=== PATIENT | female | born 1930 | race Caucasian/White ===

== ENCOUNTER 2017-04-14 15:37 | Inpatient (IN) ==
--- NOTE | 2017-04-14 16:07 | Emergency Department Report ---
Psych HPI - General Chief Complaint: Psychiatric Symptoms Stated Complaint: [facility] Clearance Time Seen by Provider: 04/14/17 15:50 Source: patient Mode of arrival: wheelchair Limitations: altered mental status - History of Present Illness HPI Narrative: [place] with [place]. [place] staff reports pt has had increasing paranoia over the last 2 weeks. Pt has accused staff of stealing her belongs. She thinks people are coming to get her through her TV set. [place] has tried to obtain a urine sample without success. NH staff reports pt is normally mentally cognizant. PCP and NH staff have attempted to make medication changes however pt is very aware of what medications she takes and has refused taking anything different. complaint: other (paranoia) Onset (ago): week(s) Duration: constant Relieving factors: none Exacerbating factors: none Associated psychiatric symptoms: other (paranoia) Associated symptoms: denies other symptoms Treatments prior to arrival: none - Related Data Home Medications Medication Instructions Recorded Confirmed Acetaminophen [Acetaminophen Extra 1,000 mg PO Q4H PRN 01/20/17 04/14/17 Strength] Ascorbic Acid [Vitamin C] 500 mg PO DAILY 01/20/17 04/14/17 Aspirin 81 mg PO DAILY 01/20/17 04/14/17 Cholecalciferol (Vitamin D3) 1,000 mg PO DAILY 01/20/17 04/14/17 [Vitamin D3] Docusate Sodium [Colace] 100 mg PO DAILY PRN 04/14/17 04/14/17 Mag Hydrox/Aluminum Hyd/Simeth 5 ml PO BID PRN 04/14/17 04/14/17 [Alum-Mag Hydroxide-Simeth Liq] Previous Rx's Medication Instructions Recorded levothyroxine 75 mcg tablet 75 mcg PO QAM #30 tab 11/11/16 Lasix (Furosemide) 20 mg tablet 20 mg PO BID #60 tab 04/01/17 Allergies Allergy/AdvReac Type Severity Reaction Status Date / Time heparin Allergy Unknown Verified 04/14/17 15:56 influenza virus vaccine, Allergy Unknown Verified 04/14/17 15:56 specific iodine Allergy Unknown Verified 04/14/17 15:56 Penicillins Allergy Unknown Verified 04/14/17 15:56 pentazocine [From Talwin] Allergy Unknown Verified 04/14/17 15:56 strawberry Allergy Unknown Verified 04/14/17 15:56 Sulfa (Sulfonamide Allergy Unknown Verified 04/14/17 15:56 Antibiotics) zolpidem [From Ambien] Allergy Unknown Verified 04/14/17 15:56 orange peel tincture Allergy Unknown Uncoded 01/20/17 09:24 Shellfish Allergy Unknown Uncoded 11/01/10 08:02 Review of Systems All systems: reviewed and negative except as stated Constitutional: Reports: as per HPI Neurological: Reports: as per HPI Psychiatric: Reports: as per HPI PFSH Patient Stated Medical History Glaucoma Yes Hypertension Yes Chronic Obstructive Pulmonary Yes Disease (COPD) Osteoarthritis Yes Schizophrenia Yes Surgical History: Orthopedic surgery, CABG - Social History Smoking status: Never smoker Physical Exam - Limitations Limitations: no limitations - General General appearance: alert, in no apparent distress - Normal Exams: Head:: Normocephalic without trauma Eyes:: Pupils are PERRLA w/ EOMI Neck:: Full range of motion, without adenopathy Chest/Respirations:: Clear all baptiste, with good airflow, and symmetry bilaterally Cardiovascular:: Regular rate and rhythm, without murmur or gallop, Pulses 2+ all extremities Abdomen:: Bowel sounds positive, soft, non-tender, non-distended Musculoskeletal:: No tenderness, or deformity noted, good range of motion, all extremities Integumentary:: No rashes Neurological:: Patient is alert, cranial nerves, motor/sensory/cerebellar, exams w/o gross deficits, to observation Psychiatric:: Patient exhibits, appropriate attention, emotion and affect Course Vital Signs Temperature 97.8 F 04/14/17 15:40 Pulse Rate 67 04/14/17 15:40 Respiratory Rate 18 04/14/17 15:40 Blood Pressure 133/65 04/14/17 15:40 Pulse Oximetry 93 04/14/17 15:40 Temperature 97.8 F 04/14/17 15:40 Pulse Rate 67 04/14/17 15:40 Respiratory Rate 18 04/14/17 15:40 Blood Pressure 133/65 04/14/17 15:40 Pulse Oximetry 93 04/14/17 15:40 Psych - MDM Narrative Medical decision making narrative: Labs reviewed with no acute findings. [facility] notified of pt medical clearance. Pt to transfer after report given. - Differential Diagnosis Likely: acute psychosis, depression, acute anxiety - Lab Data Attestation: I reviewed the patient's lab results. Result diagrams: 04/14/17 16:15 04/14/17 16:15 Lab Results 04/14/17 04/14/17 04/14/17 Range/Units 16:15 16:15 16:44 WBC 8.5 (4.5-11.0) T/MM3 RBC 4.23 (4.00-5.20) M/MM3 Hgb 13.9 (12-16) GM/DL Hct 43.0 (36-46) % MCV 101.7 H (80-100) UM3 MCH 32.9 (26-34) UUG MCHC 32.3 (31-37) GM/DL RDW Std Deviation 44.8 (36.9-50.2) FL Plt Count 212 (130-400) T/MM3 MPV 11.1 (9.4-12.4) UM3 Immature Gran % (Auto) 0.1 (0.0-0.5) % Neut % (Auto) 69.6 H (33-66) % Lymph % (Auto) 17.0 L (23-45) % Wilbarger % (Auto) 10.9 H (0-9.0) % Eos % (Auto) 1.9 (0-4) % Baso % (Auto) 0.5 (0-2) % Neut # (Auto) 5.9 (1.8-7.7) T/MM3 Lymph # (Auto) 1.5 (1-4.8) T/MM3 Wilbarger # (Auto) 0.9 H (0-0.8) T/MM3 Eos # (Auto) 0.2 (0-0.5) T/MM3 Baso # (Auto) 0.0 (0-0.2) T/MM3 Abs Immat Gran (auto) 0.01 (0.00-0.03) T/MM3 Turbidity < 20 (0-20) Sodium 144 (134-144) MEQ/L Potassium 3.5 L (3.6-5) MEQ/L Chloride 102 (98-107) MEQ/L Carbon Dioxide 32 H (22-30) MEQ/L Anion Gap 10 (5-15) MEQ/L BUN 14.0 (7-17) MG/DL Creatinine 0.9 (0.7-1.2) MG/DL GFR Calculation 59 BUN/Creatinine Ratio 16 (6-26) RATIO Glucose 96 (65-110) MG/DL Calculated Osmolality 278 (261-280) MOSM/KG Calcium 8.8 (8.4-10.2) MG/DL Total Bilirubin 0.80 (0.20-1.30) MG/DL Icterus Index < 2 (0-7) AST 20 (14-36) U/L ALT 22 (9-52) U/L Alkaline Phosphatase 108 (38-126) U/L Total Protein 7.6 (6.3-8.2) G/DL Albumin 4.0 (3.5-5.0) G/DL Globulin 3.6 (2.4-3.6) G/DL Albumin/Globulin Ratio 1.1 (1.1-2.2) RATIO Specimen Hemolysis < 15 (0-25) Ur Collection Type Urine, catheter Urine Color Yellow (YELLOW) Urine Clarity Clear Urine pH 6.5 (5.0-8.0) Ur Specific Wh[place] <=1.005 L (1.015-1.025) Urine Protein Negative (NEGATIVE) Urine Glucose (UA) Negative (NEGATIVE) Urine Ketones Negative (NEGATIVE) Urine Occult Blood Negative (NEGATIVE) Urine Nitrate Negative (NEGATIVE) Urine Bilirubin Negative (NEGATIVE) Urine Urobilinogen 0.2 (NORMAL) EU/DL Ur Leukocyte Esterase Negative (NEGATIVE) Urinalysis Comment Microscopic not ind. Disposition Clinical Impression: Acute psychosis Disposition: 66 To [facility] Condition: Stable Prescriptions: No Action Ascorbic Acid [Vitamin C] 500 mg PO DAILY Docusate Sodium [Colace] 100 mg PO DAILY PRN PRN Reason: Constipation Aspirin 81 mg PO DAILY Cholecalciferol (Vitamin D3) [Vitamin D3] 1,000 mg PO DAILY Acetaminophen [Acetaminophen Extra Strength] 1,000 mg PO Q4H PRN PRN Reason: Pain Mag Hydrox/Aluminum Hyd/Simeth [Alum-Mag Hydroxide-Simeth Liq] 5 ml PO BID PRN PRN Reason: Indigestion Lasix (Furosemide) 20 mg tablet 20 mg PO BID #60 tab levothyroxine 75 mcg tablet 75 mcg PO QAM #30 tab Referrals: Mt Zarate MD [Family Provider] - Time of Disposition: 16:53 - Seen By: midlevel
[2017-04-14] MEDS ORDERED: HALOPERIDOL 0.5 MG TABLET PO PRN (17:44)
[2017-04-14] MEDS ORDERED: MAG-AL + SIM ORAL LIQUID 30ml PO PRN (17:44)
[2017-04-14] MEDS ORDERED: DOCUSATE SODIUM 100 MG CAPSULE PO PRN (17:44)
[2017-04-14] MEDS ORDERED: HALOPERIDOL 5 MG/ML INJECTION IM PRN (17:44)
[2017-04-14] MEDS ORDERED: LORazepam 0.5 MG TABLET PO PRN (17:44)
[2017-04-14 17:50] VITALS: BMI 36.4
[2017-04-15] MEDS: FUROSEMIDE 20 MG TABLET PO SCH ×2 (09:00→14:31)
[2017-04-15] MEDS: LEVOTHYROXINE 75 MCG TABLET PO SCH (09:00)
[2017-04-15] MEDS: ASPIRIN 81 MG CHEWABLE TABLET PO SCH (09:12)
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
[2017-04-16] MEDS: LEVOTHYROXINE 75 MCG TABLET PO SCH (08:47)
[2017-04-16] MEDS: FUROSEMIDE 20 MG TABLET PO SCH ×2 (08:47→13:46)
[2017-04-16] MEDS: ASPIRIN 81 MG CHEWABLE TABLET PO SCH (08:47)
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
[2017-04-17] MEDS: ASPIRIN 81 MG CHEWABLE TABLET PO SCH (08:36)
[2017-04-17] MEDS: FUROSEMIDE 20 MG TABLET PO SCH ×2 (08:36→14:08)
[2017-04-17] MEDS: LEVOTHYROXINE 75 MCG TABLET PO SCH (08:36)
[2017-04-17] MEDS: CYANOCOBALAMIN (B-12) 1,000mcg/ml INJECTION IM SCH (10:25)
--- NOTE | 2017-04-17 12:56 | Neuropsych Progress Note ---
[facility] Subjective Date: 04/17/17 - Sujective/Severity of Illness Medications: Acetaminophen (Tylenol) 1,000 mg PO Q6H PRN PRN Reason: Pain Al Hydroxide/Mg Hydroxide (Maalox Plus) 5 ml PO BID PRN PRN Reason: Indigestion Aspirin (Asa) 81 mg PO DAILY [facility] Last Admin: 04/17/17 08:36 Dose: 81 mg Cyanocobalamin (Vit. B-12) 1,000 mcg IM DAILY [facility] Stop: 04/19/17 09:01 Last Admin: 04/17/17 10:25 Dose: 1,000 mcg Docusate Sodium (Colace) 100 mg PO DAILY PRN PRN Reason: Constipation Furosemide (Lasix) 20 mg PO 0800,1400 [facility] Last Admin: 04/17/17 08:36 Dose: 20 mg Haloperidol (Haldol) 0.5 mg PO Q6H PRN PRN Reason: Extreme agitation Haloperidol Lactate (Haldol) 0.5 mg IM Q6H PRN PRN Reason: Extreme agitation Levothyroxine Sodium (Synthroid) 75 mcg PO ACB [facility] Last Admin: 04/17/17 08:36 Dose: 75 mcg Lorazepam (Ativan) 0.5 mg PO Q6H PRN PRN Reason: Extreme agitation Lorazepam (Ativan Inj) 0.5 mg IM Q6H PRN PRN Reason: Extreme agitation Subjective: Patient seen and chart reviewed. Case discussed with nursing. Nursing reports pt is doing well. Sleeping well and has a good appetite. On face to face the pt states she is doing well. She remains paranoid [facility] but does not feel it is happening here. She reports her mood is stable and she denies any S/I. Tolerating meds Start Time: 12:45 Stop Time: 13:00 Mental Status Exam Vitals: Last Vital Signs Temp 96.5 F L 04/17/17 08:00 Pulse 70 04/17/17 08:00 Resp 20 04/17/17 08:00 BP 132/66 04/17/17 08:00 Pulse Ox 96 04/17/17 08:00 Height: 1.63 m Weight: 96.3 kg - Mental Status Exam Muscle Strength/Tone: Normal Dressing: Casual Grooming: Fair Attitude: Cooperative Motor Activity: Fidgety Eye Contact: Good Speech: Rapid Volume: Loud Rhythm: Appropriate Rhythm Orientation: Disoriented to time, Disoriented to situation, Oriented to person, Oriented to place Mood: Neutral Rate of Thoughts: Pressured Thought Organization: Disorganized Associations: Loose-associations Abstract Reasoning: Poor abstract reasoning Thought Content: Paranoia, Grandeur (mild) Perception/Psychotic: Perception Normal Language: Naming Intact Fund of Knowledge: Other (decreased) Memory: Poor-recent Suicidal Ideation: Denies Homicidal Ideation: Denies Insight: Impaired Judgement: Impaired Impulse Control: Poor - Laboratory Result Diagrams: 04/14/17 16:15 04/17/17 07:33 Laboratory Results - last 24 hr 04/17/17 07:33 Turbidity < 20 Sodium 145 H Potassium 4.2 D Chloride 107 Carbon Dioxide 31 H Anion Gap 7 BUN 12.0 Creatinine 0.8 GFR Calculation 68 BUN/Creatinine Ratio 15 Glucose 97 Calculated Osmolality 279 Calcium 8.5 Icterus Index < 2 Specimen Hemolysis < 15 Assessment and Plan (1) Acute psychosis Problem details: R/O Bipolar 1 disorder, manic, with psychotic features Current visit: Yes Status: Acute (2) Major neurocognitive disorder Current visit: Yes Status: Acute (3) COPD (chronic obstructive pulmonary disease) Current visit: Yes Status: Acute (4) Hypertension Current visit: Yes Status: Acute (5) Glaucoma Current visit: Yes Status: Acute (6) Hypothyroidism Current visit: Yes Status: Acute (7) Osteoarthritis Current visit: Yes Status: Acute (8) Vitamin B12 deficiency Current visit: Yes Status: Acute Hospital Course Summary Disclaimer: The visit summary below is not to be considered part of the above Progress Note. Hospital Course: 04/15/17 Impression Hypokalemia- POA Psychosis Schizophrenia COPD Hypertension Glaucoma Hypothyroidism Osteoarthritis Plan Agree with admission to [facility] unit under the care of Dr. Katz for further psychiatric evaluation and treatment. All medical screening reviewed. Will recommend treating the mild hypokalemia with a one-time dose of potassium 40meq. It appears she is on Lasix BID without scheduled potassium supplementation. Will then schedule 10 meq daily. Monitor blood pressure, It does not appear the patient is on any antihypertensives currently. Encourage patient to participate in unit activities and provide a safe environment. Hospital services will continue to follow patient covering for PCP, Dr. Zarate 04/15/17 Psych: Admit - continued home medications. 04/16/17 Psych: Attempting to obtain records from [place] to assess whether patient has previously been diagnosed as bipolar - if so, would like to start Depakote once obtaining consent from [facility]. Have ordered Vitamin B12 1000mg IM x 3 days due to low B12 upon admission. 04/17/17 12:55 Some paranoia but no behaviors. Continue current care
[2017-04-18] MEDS: LEVOTHYROXINE 75 MCG TABLET PO SCH (06:46)
[2017-04-18] MEDS: FUROSEMIDE 20 MG TABLET PO SCH ×2 (08:31→17:08)
[2017-04-18] MEDS: ASPIRIN 81 MG CHEWABLE TABLET PO SCH (08:31)
[2017-04-18] MEDS: CYANOCOBALAMIN (B-12) 1,000mcg/ml INJECTION IM SCH (08:32)
--- NOTE | 2017-04-18 12:45 | Neuropsych Progress Note ---
[facility] Subjective Date: 04/18/17 - Sujective/Severity of Illness Medications: Acetaminophen (Tylenol) 1,000 mg PO Q6H PRN PRN Reason: Pain Al Hydroxide/Mg Hydroxide (Maalox Plus) 5 ml PO BID PRN PRN Reason: Indigestion Aspirin (Asa) 81 mg PO DAILY [facility] Last Admin: 04/18/17 08:31 Dose: 81 mg Cyanocobalamin (Vit. B-12) 1,000 mcg IM DAILY [facility] Stop: 04/19/17 09:01 Last Admin: 04/18/17 08:32 Dose: 1,000 mcg Docusate Sodium (Colace) 100 mg PO DAILY PRN PRN Reason: Constipation Furosemide (Lasix) 20 mg PO 0800,1400 [facility] Last Admin: 04/18/17 08:31 Dose: 20 mg Haloperidol (Haldol) 0.5 mg PO Q6H PRN PRN Reason: Extreme agitation Haloperidol Lactate (Haldol) 0.5 mg IM Q6H PRN PRN Reason: Extreme agitation Levothyroxine Sodium (Synthroid) 75 mcg PO ACB [facility] Last Admin: 04/18/17 06:46 Dose: 75 mcg Lorazepam (Ativan) 0.5 mg PO Q6H PRN PRN Reason: Extreme agitation Lorazepam (Ativan Inj) 0.5 mg IM Q6H PRN PRN Reason: Extreme agitation Subjective: Patient seen and chart reviewed. Case discussed with nursing. Nursing reports pt is sleeping well and has a good appetite. Remains paranoid about people stealing her clothes but is redirectable. On face to face the pt is pleasant. She reports people stealing her clothes at the [place] but this does not appear to be real concerning to her. She reports her mood is stable. Tolerating meds Start Time: 12:30 Stop Time: 12:45 Mental Status Exam Vitals: Last Vital Signs Temp 97.5 F 04/18/17 08:00 Pulse 72 04/18/17 08:00 Resp 18 04/18/17 08:00 BP 137/72 04/18/17 08:00 Pulse Ox 96 04/18/17 08:00 Height: 1.63 m Weight: 96.3 kg - Mental Status Exam Muscle Strength/Tone: Normal Dressing: Casual Grooming: Fair Attitude: Cooperative Motor Activity: Fidgety Eye Contact: Good Speech: Rapid Volume: Loud Rhythm: Appropriate Rhythm Orientation: Disoriented to time, Disoriented to situation, Oriented to person, Oriented to place Mood: Neutral Rate of Thoughts: Pressured Thought Organization: Disorganized Associations: Loose-associations Abstract Reasoning: Poor abstract reasoning Thought Content: Paranoia, Grandeur (mild) Perception/Psychotic: Perception Normal Language: Naming Intact Fund of Knowledge: Other (decreased) Memory: Poor-recent Suicidal Ideation: Denies Homicidal Ideation: Denies Insight: Impaired Judgement: Impaired Impulse Control: Poor - Laboratory Result Diagrams: 04/14/17 16:15 04/17/17 07:33 Assessment and Plan (1) Acute psychosis Problem details: R/O Bipolar 1 disorder, manic, with psychotic features Current visit: Yes Status: Acute (2) Major neurocognitive disorder Current visit: Yes Status: Acute (3) COPD (chronic obstructive pulmonary disease) Current visit: Yes Status: Acute (4) Hypertension Current visit: Yes Status: Acute (5) Glaucoma Current visit: Yes Status: Acute (6) Hypothyroidism Current visit: Yes Status: Acute (7) Osteoarthritis Current visit: Yes Status: Acute (8) Vitamin B12 deficiency Current visit: Yes Status: Acute Hospital Course Summary Disclaimer: The visit summary below is not to be considered part of the above Progress Note. Hospital Course: 04/15/17 Impression Hypokalemia- POA Psychosis Schizophrenia COPD Hypertension Glaucoma Hypothyroidism Osteoarthritis Plan Agree with admission to [facility] under the care of Dr. Katz for further psychiatric evaluation and treatment. All medical screening reviewed. Will recommend treating the mild hypokalemia with a one-time dose of potassium 40meq. It appears she is on Lasix BID without scheduled potassium supplementation. Will then schedule 10 meq daily. Monitor blood pressure, It does not appear the patient is on any antihypertensives currently. Encourage patient to participate in unit activities and provide a safe environment. Hospital services will continue to follow patient covering for PCP, Dr. Zarate 04/15/17 Psych: Admit - continued home medications. 04/16/17 Psych: Attempting to obtain records from [place] to assess whether patient has previously been diagnosed as bipolar - if so, would like to start Depakote once obtaining consent from [facility]. Have ordered Vitamin B12 1000mg IM x 3 days due to low B12 upon admission. 04/17/17 12:55 Some paranoia but no behaviors. Continue current care 04/18/17 12:42 Some paranoia. Continue current care
[2017-04-19] MEDS: LEVOTHYROXINE 75 MCG TABLET PO SCH (08:36)
[2017-04-19] MEDS: FUROSEMIDE 20 MG TABLET PO SCH ×2 (08:36→15:27)
[2017-04-19] MEDS: ASPIRIN 81 MG CHEWABLE TABLET PO SCH (08:37)
[2017-04-19] MEDS: CYANOCOBALAMIN (B-12) 1,000mcg/ml INJECTION IM SCH (08:37)
--- NOTE | 2017-04-19 11:09 | Neuropsych Progress Note ---
[facility] Subjective Date: 04/19/17 - Sujective/Severity of Illness Medications: Acetaminophen (Tylenol) 1,000 mg PO Q6H PRN PRN Reason: Pain Al Hydroxide/Mg Hydroxide (Maalox Plus) 5 ml PO BID PRN PRN Reason: Indigestion Aspirin (Asa) 81 mg PO DAILY [facility] Last Admin: 04/19/17 08:37 Dose: 81 mg Docusate Sodium (Colace) 100 mg PO DAILY PRN PRN Reason: Constipation Furosemide (Lasix) 20 mg PO 0800,1400 [facility] Last Admin: 04/19/17 08:36 Dose: 20 mg Haloperidol (Haldol) 0.5 mg PO Q6H PRN PRN Reason: Extreme agitation Haloperidol Lactate (Haldol) 0.5 mg IM Q6H PRN PRN Reason: Extreme agitation Levothyroxine Sodium (Synthroid) 75 mcg PO ACB [facility] Last Admin: 04/19/17 08:36 Dose: 75 mcg Lorazepam (Ativan) 0.5 mg PO Q6H PRN PRN Reason: Extreme agitation Lorazepam (Ativan Inj) 0.5 mg IM Q6H PRN PRN Reason: Extreme agitation Subjective: Patient seen and chart reviewed. Case discussed with nursing. Nursing reports pt is sleeping well and has a good appetite. On face to face the pt continues to say she is here because people were stealing her clothes but again this does not seem to be to concerning to her at this time. She reports her mood is stable and she denies any S/I or A/V garcia. Voices no concerns at this time Start Time: 10:30 Stop Time: 10:45 Mental Status Exam Vitals: Last Vital Signs Temp 97.0 F 04/19/17 08:00 Pulse 72 04/19/17 08:00 Resp 20 04/19/17 08:00 BP 126/68 04/19/17 08:00 Pulse Ox 98 04/19/17 08:00 Height: 1.63 m Weight: 96.3 kg - Mental Status Exam Muscle Strength/Tone: Normal Dressing: Casual Grooming: Fair Attitude: Cooperative Motor Activity: Normal Eye Contact: Good Speech: Normal Volume: Normal Rhythm: Appropriate Rhythm Orientation: Disoriented to time, Disoriented to situation, Oriented to person, Oriented to place Mood: Euthymic Rate of Thoughts: Pressured Thought Organization: Organized Associations: Intact Abstract Reasoning: Poor abstract reasoning Thought Content: Paranoia Perception/Psychotic: Perception Normal Language: Naming Intact Fund of Knowledge: Poor fund of knowledge Memory: Poor-recent Suicidal Ideation: Denies Homicidal Ideation: Denies Insight: Impaired Judgement: Impaired Impulse Control: Fair - Laboratory Result Diagrams: 04/14/17 16:15 04/17/17 07:33 Assessment and Plan (1) Acute psychosis Problem details: R/O Bipolar 1 disorder, manic, with psychotic features Current visit: Yes Status: Acute (2) Major neurocognitive disorder Current visit: Yes Status: Acute (3) COPD (chronic obstructive pulmonary disease) Current visit: Yes Status: Acute (4) Hypertension Current visit: Yes Status: Acute (5) Glaucoma Current visit: Yes Status: Acute (6) Hypothyroidism Current visit: Yes Status: Acute (7) Osteoarthritis Current visit: Yes Status: Acute (8) Vitamin B12 deficiency Current visit: Yes Status: Acute Hospital Course Summary Disclaimer: The visit summary below is not to be considered part of the above Progress Note. Hospital Course: 04/15/17 Impression Hypokalemia- POA Psychosis Schizophrenia COPD Hypertension Glaucoma Hypothyroidism Osteoarthritis Plan Agree with admission to [facility] under the care of Dr. Katz for further psychiatric evaluation and treatment. All medical screening reviewed. Will recommend treating the mild hypokalemia with a one-time dose of potassium 40meq. It appears she is on Lasix BID without scheduled potassium supplementation. Will then schedule 10 meq daily. Monitor blood pressure, It does not appear the patient is on any antihypertensives currently. Encourage patient to participate in unit activities and provide a safe environment. Hospital services will continue to follow patient covering for PCP, Dr. Zarate 04/15/17 Psych: Admit - continued home medications. 04/16/17 Psych: Attempting to obtain records from [place] to assess whether patient has previously been diagnosed as bipolar - if so, would like to start Depakote once obtaining consent from [facility]. Have ordered Vitamin B12 1000mg IM x 3 days due to low B12 upon admission. 04/17/17 12:55 Some paranoia but no behaviors. Continue current care 04/18/17 12:42 Some paranoia. Continue current care 04/19/17 11:03 Some paranoia but mild. [facility] records have a past diagnosis of Unspecified Schizophrenia and a neurocognitive Disorder. (Possibly Delusional Disorder). PT reportedly did well on Haldol in the past but it was stopped.
[2017-04-20] MEDS: LEVOTHYROXINE 75 MCG TABLET PO SCH (06:05)
[2017-04-20] MEDS: FUROSEMIDE 20 MG TABLET PO SCH ×2 (08:37→13:54)
[2017-04-20] MEDS: ASPIRIN 81 MG CHEWABLE TABLET PO SCH (08:37)
--- NOTE | 2017-04-20 13:03 | Neuropsych Progress Note ---
[facility] Subjective Date: 04/21/17 - Sujective/Severity of Illness Medications: Acetaminophen (Tylenol) 1,000 mg PO Q6H PRN PRN Reason: Pain Al Hydroxide/Mg Hydroxide (Maalox Plus) 5 ml PO BID PRN PRN Reason: Indigestion Aspirin (Asa) 81 mg PO DAILY [facility] Last Admin: 04/20/17 08:37 Dose: 81 mg Docusate Sodium (Colace) 100 mg PO DAILY PRN PRN Reason: Constipation Furosemide (Lasix) 20 mg PO 0800,1400 [facility] Last Admin: 04/20/17 08:37 Dose: 20 mg Haloperidol (Haldol) 0.5 mg PO Q6H PRN PRN Reason: Extreme agitation Haloperidol Lactate (Haldol) 0.5 mg IM Q6H PRN PRN Reason: Extreme agitation Levothyroxine Sodium (Synthroid) 75 mcg PO ACB [facility] Last Admin: 04/20/17 06:05 Dose: 75 mcg Lorazepam (Ativan) 0.5 mg PO Q6H PRN PRN Reason: Extreme agitation Lorazepam (Ativan Inj) 0.5 mg IM Q6H PRN PRN Reason: Extreme agitation Subjective: Patient seen and chart reviewed. Case discussed with treatment team. On interview, patient is pleasant but quite perseverative in regards to paranoid delusions of staff at facility stealing from her and needing to meet with a control officer, the chief administrative officer, etc. She minimizes report of behaviors at facility that were causing problems with other residents. Patient denies any SI, HI or AVH. Discussed medication options with her and patient is adamant she does not want an antipsychotic. Nursing staff report patient has not had significant behavioral difficulties on the unit. Adherence with medications has been variable. Patient slept 7.75 hours overnight. VSS. Patient is eating well. Psychotropic PRNs required in the past 24 hours: none. Discussed care with patient's guardian, who reports that behavior at facility has repeatedly been problematic, and she would like patient to be given antipsychotic in drink. Discussed with facility, who states they are able to do this. Start Time: 09:20 Stop Time: 09:40 Mental Status Exam Vitals: Last Vital Signs Temp 97.0 F 04/20/17 08:00 Pulse 79 04/20/17 08:00 Resp 18 04/20/17 08:00 BP 130/74 04/20/17 08:00 Pulse Ox 96 04/20/17 08:00 Height: 1.63 m Weight: 96.3 kg - Mental Status Exam Muscle Strength/Tone: Normal Dressing: Casual Grooming: Fair Attitude: Cooperative Motor Activity: Normal Eye Contact: Good Speech: Normal Volume: Normal Rhythm: Appropriate Rhythm Orientation: Disoriented to time, Disoriented to situation, Oriented to person, Oriented to place Mood: Euthymic Affect: Relaxed Rate of Thoughts: Pressured (milkd) Thought Organization: Perseverations (on delusions) Associations: Intact Abstract Reasoning: Poor abstract reasoning Thought Content: Delusions, Paranoia Perception/Psychotic: Perception Normal Language: Naming Intact Fund of Knowledge: Poor fund of knowledge Memory: Poor-recent Suicidal Ideation: Denies Homicidal Ideation: Denies Insight: Impaired Judgement: Impaired Impulse Control: Fair - Laboratory Result Diagrams: 04/14/17 16:15 04/17/17 07:33 Assessment and Plan (1) Acute psychosis Problem details: R/O Schizohprenia R/O Delusional disorder Current visit: Yes Status: Acute (2) Major neurocognitive disorder Current visit: Yes Status: Acute (3) COPD (chronic obstructive pulmonary disease) Current visit: Yes Status: Acute (4) Hypertension Current visit: Yes Status: Acute (5) Glaucoma Current visit: Yes Status: Acute (6) Hypothyroidism Current visit: Yes Status: Acute (7) Osteoarthritis Current visit: Yes Status: Acute (8) Vitamin B12 deficiency Current visit: Yes Status: Acute Will start Zyprexa 2.5mg PO in drink at dinner; informed consent given by guardian to give medication without patient's knowledge. Hospital Course Summary Disclaimer: The visit summary below is not to be considered part of the above Progress Note. Hospital Course: 04/15/17 Impression Hypokalemia- POA Psychosis Schizophrenia COPD Hypertension Glaucoma Hypothyroidism Osteoarthritis Plan Agree with admission to [facility] unit under the care of Dr. Katz for further psychiatric evaluation and treatment. All medical screening reviewed. Will recommend treating the mild hypokalemia with a one-time dose of potassium 40meq. It appears she is on Lasix BID without scheduled potassium supplementation. Will then schedule 10 meq daily. Monitor blood pressure, It does not appear the patient is on any antihypertensives currently. Encourage patient to participate in unit activities and provide a safe environment. Hospital services will continue to follow patient covering for PCP, Dr. Zarate 04/15/17 Psych: Admit - continued home medications. 04/16/17 Psych: Attempting to obtain records from [place] to assess whether patient has previously been diagnosed as bipolar - if so, would like to start Depakote once obtaining consent from [facility]. Have ordered Vitamin B12 1000mg IM x 3 days due to low B12 upon admission. 04/17/17 12:55 Some paranoia but no behaviors. Continue current care 04/18/17 12:42 Some paranoia. Continue current care 04/19/17 11:03 Some paranoia but mild. [facility] records have a past diagnosis of Unspecified Schizophrenia and a neurocognitive Disorder. (Possibly Delusional Disorder). PT reportedly did well on Haldol in the past but it was stopped. 04/21/17 Psych: Will start Zyprexa 2.5mg PO in drink at dinner; informed consent given by guardian to give medication without patient's knowledge.
[2017-04-20] MEDS: OLANZapine ODT 5 MG TABLET PO SCH (17:15)
[2017-04-21] MEDS: LEVOTHYROXINE 75 MCG TABLET PO SCH (08:16)
[2017-04-21] MEDS: FUROSEMIDE 20 MG TABLET PO SCH ×2 (08:16→14:00)
[2017-04-21] MEDS: ASPIRIN 81 MG CHEWABLE TABLET PO SCH (08:17)
--- NOTE | 2017-04-21 11:59 | Neuropsych Progress Note ---
[facility] Subjective Date: 04/21/17 - Sujective/Severity of Illness Medications: Acetaminophen (Tylenol) 1,000 mg PO Q6H PRN PRN Reason: Pain Al Hydroxide/Mg Hydroxide (Maalox Plus) 5 ml PO BID PRN PRN Reason: Indigestion Aspirin (Asa) 81 mg PO DAILY [facility] Last Admin: 04/21/17 08:17 Dose: 81 mg Docusate Sodium (Colace) 100 mg PO DAILY PRN PRN Reason: Constipation Furosemide (Lasix) 20 mg PO 0800,1400 [facility] Last Admin: 04/21/17 08:16 Dose: 20 mg Haloperidol (Haldol) 0.5 mg PO Q6H PRN PRN Reason: Extreme agitation Haloperidol Lactate (Haldol) 0.5 mg IM Q6H PRN PRN Reason: Extreme agitation Levothyroxine Sodium (Synthroid) 75 mcg PO ACB [facility] Last Admin: 04/21/17 08:16 Dose: 75 mcg Lorazepam (Ativan) 0.5 mg PO Q6H PRN PRN Reason: Extreme agitation Lorazepam (Ativan Inj) 0.5 mg IM Q6H PRN PRN Reason: Extreme agitation Olanzapine (Zyprexa Zydis) 2.5 mg PO 17 [facility] Last Admin: 04/20/17 17:15 Dose: 2.5 mg Subjective: Patient seen and chart reviewed. Case discussed with treatment team. On interview, patient continues to have paranoid delusions but is less perseverative today. Patient denies any SI, HI or AVH. Nursing staff report patient has not had significant behavioral difficulties on the unit. Adherence with medications has been variable. Patient slept 9.5 hours overnight. VSS. Patient is eating well. Psychotropic PRNs required in the past 24 hours: none. Start Time: 09:20 Stop Time: 09:40 Mental Status Exam Vitals: Last Vital Signs Temp 96.8 F 04/21/17 08:00 Pulse 72 04/21/17 08:00 Resp 16 04/21/17 08:00 BP 138/73 04/21/17 08:00 Pulse Ox 93 04/21/17 08:00 Height: 1.63 m Weight: 96.3 kg - Mental Status Exam Muscle Strength/Tone: Normal Dressing: Casual Grooming: Fair Attitude: Cooperative Motor Activity: Normal Eye Contact: Good Speech: Normal Volume: Normal Rhythm: Appropriate Rhythm Orientation: Disoriented to time, Disoriented to situation, Oriented to person, Oriented to place Mood: Euthymic Rate of Thoughts: Pressured (milkd) Thought Organization: Perseverations (on delusions) Associations: Intact Abstract Reasoning: Poor abstract reasoning Thought Content: Delusions, Paranoia Perception/Psychotic: Perception Normal Language: Naming Intact Fund of Knowledge: Poor fund of knowledge Memory: Poor-recent Suicidal Ideation: Denies Homicidal Ideation: Denies Insight: Impaired Judgement: Impaired Impulse Control: Fair - Laboratory Result Diagrams: 04/14/17 16:15 04/17/17 07:33 Assessment and Plan (1) Acute psychosis Problem details: R/O Schizohprenia R/O Delusional disorder Current visit: Yes Status: Acute (2) Major neurocognitive disorder Current visit: Yes Status: Acute (3) COPD (chronic obstructive pulmonary disease) Current visit: Yes Status: Acute (4) Hypertension Current visit: Yes Status: Acute (5) Glaucoma Current visit: Yes Status: Acute (6) Hypothyroidism Current visit: Yes Status: Acute (7) Osteoarthritis Current visit: Yes Status: Acute (8) Vitamin B12 deficiency Current visit: Yes Status: Acute Zyprexa started last night - if well-tolerated, can increase to 5mg PO daily on 04/22. Will also continue weekly IM Vitamin B12 x 1 month then monthly injections thereafter. Would prefer to use different antipsychotic as patient is already obese but limited as it must be dissolved in patient's drink. Hospital Course Summary Disclaimer: The visit summary below is not to be considered part of the above Progress Note. Hospital Course: 04/15/17 Impression Hypokalemia- POA Psychosis Schizophrenia COPD Hypertension Glaucoma Hypothyroidism Osteoarthritis Plan Agree with admission to [facility] under the care of Dr. Katz for further psychiatric evaluation and treatment. All medical screening reviewed. Will recommend treating the mild hypokalemia with a one-time dose of potassium 40meq. It appears she is on Lasix BID without scheduled potassium supplementation. Will then schedule 10 meq daily. Monitor blood pressure, It does not appear the patient is on any antihypertensives currently. Encourage patient to participate in unit activities and provide a safe environment. Hospital services will continue to follow patient covering for PCP, Dr. Zarate 04/15/17 Psych: Admit - continued home medications. 04/16/17 Psych: Attempting to obtain records from [place] to assess whether patient has previously been diagnosed as bipolar - if so, would like to start Depakote once obtaining consent from [facility]. Have ordered Vitamin B12 1000mg IM x 3 days due to low B12 upon admission. 04/17/17 12:55 Some paranoia but no behaviors. Continue current care 04/18/17 12:42 Some paranoia. Continue current care 04/19/17 11:03 Some paranoia but mild. [facility] records have a past diagnosis of Unspecified Schizophrenia and a neurocognitive Disorder. (Possibly Delusional Disorder). PT reportedly did well on Haldol in the past but it was stopped. 04/21/17 Psych: Will start Zyprexa 2.5mg PO in drink at dinner; informed consent given by guardian to give medication without patient's knowledge. 04/22/17 Psych: Zyprexa started last night - if well-tolerated, can increase to 5mg PO daily on 04/22. Will also continue weekly IM Vitamin B12 x 1 month then monthly injections thereafter. Would prefer to use different antipsychotic as patient is already obese but limited as it must be dissolved in patient's drink.
[2017-04-21] MEDS: OLANZapine ODT 5 MG TABLET PO SCH (16:51)
[2017-04-22] MEDS: FUROSEMIDE 20 MG TABLET PO SCH ×2 (08:36→14:43)
[2017-04-22] MEDS: LEVOTHYROXINE 75 MCG TABLET PO SCH (08:36)
[2017-04-22] MEDS: PANTOPRAZOLE 40 MG TABLET PO SCH (11:24)
--- NOTE | 2017-04-22 14:10 | Neuropsych Progress Note ---
[facility] Subjective Date: 04/22/17 - Sujective/Severity of Illness Medications: Acetaminophen (Tylenol) 1,000 mg PO Q6H PRN PRN Reason: Pain Al Hydroxide/Mg Hydroxide (Maalox Plus) 5 ml PO BID PRN PRN Reason: Indigestion Docusate Sodium (Colace) 100 mg PO DAILY PRN PRN Reason: Constipation Last Admin: 04/22/17 08:36 Dose: 100 mg Furosemide (Lasix) 20 mg PO 0800,1400 [facility] Last Admin: 04/22/17 08:36 Dose: 20 mg Haloperidol (Haldol) 0.5 mg PO Q6H PRN PRN Reason: Extreme agitation Haloperidol Lactate (Haldol) 0.5 mg IM Q6H PRN PRN Reason: Extreme agitation Levothyroxine Sodium (Synthroid) 75 mcg PO ACB [facility] Last Admin: 04/22/17 08:36 Dose: 75 mcg Lorazepam (Ativan) 0.5 mg PO Q6H PRN PRN Reason: Extreme agitation Lorazepam (Ativan Inj) 0.5 mg IM Q6H PRN PRN Reason: Extreme agitation Olanzapine (Zyprexa Zydis) 2.5 mg PO 17 [facility] Last Admin: 04/21/17 16:51 Dose: 2.5 mg Pantoprazole Sodium (Protonix Tab) 40 mg PO ACB [facility] Last Admin: 04/22/17 11:24 Dose: 40 mg Senna (Senna Lax) 17.2 mg PO HS [facility] Subjective: Patient seen and chart reviewed. Case discussed with treatment team. On interview, patient continues to have paranoid delusions but is less perseverative today. She still states she "wants to be heard" by a person of authority such as a cardiovascular surgeon or commander police reserves. Patient denies any SI, HI or AVH. She denies any symptoms consistent with AE due to psychotropic medications. Nursing staff report patient has not had significant behavioral difficulties on the unit. Patient has been adherent with medications but is not aware she is taking an antipsychotic (informed consent obtained from guardian). Patient slept 9.25 hours overnight. VSS. Patient is eating well. Psychotropic PRNs required in the past 24 hours: none. Start Time: 11:00 Stop Time: 11:20 Mental Status Exam Vitals: Last Vital Signs Temp 97.2 F 04/22/17 08:00 Pulse 81 12/28/17 08:00 Resp 18 04/22/17 08:00 BP 152/67 H 04/22/17 08:00 Pulse Ox 99 04/22/17 08:00 Height: 1.63 m Weight: 96.7 kg - Mental Status Exam Muscle Strength/Tone: Normal Dressing: Casual Grooming: Fair Attitude: Cooperative Motor Activity: Normal Eye Contact: Good Speech: Normal Volume: Normal Rhythm: Appropriate Rhythm Orientation: Disoriented to time, Disoriented to situation, Oriented to person, Oriented to place Mood: Euthymic Rate of Thoughts: Pressured (milkd) Thought Organization: Perseverations (on delusions) Associations: Intact Abstract Reasoning: Poor abstract reasoning Thought Content: Delusions, Paranoia Perception/Psychotic: Perception Normal Language: Naming Intact Fund of Knowledge: Poor fund of knowledge Memory: Poor-recent Suicidal Ideation: Denies Homicidal Ideation: Denies Insight: Impaired Judgement: Impaired Impulse Control: Fair - Laboratory Result Diagrams: 04/22/17 09:58 04/22/17 09:58 Laboratory Results - last 24 hr 04/22/17 04/22/17 09:58 09:58 WBC 5.8 RBC 4.20 Hgb 14.1 Hct 42.5 MCV 101.2 H MCH 33.6 MCHC 33.2 RDW Std Deviation 46.8 Plt Count 263 MPV 10.8 Immature Gran % (Auto) 0.2 Neut % (Auto) 64.3 Lymph % (Auto) 21.9 L [place] % (Auto) 8.1 Eos % (Auto) 4.8 H Baso % (Auto) 0.7 Neut # (Auto) 3.7 Lymph # (Auto) 1.3 [place] # (Auto) 0.5 Eos # (Auto) 0.3 Baso # (Auto) 0.0 Abs Immat Gran (auto) 0.01 Turbidity < 20 Sodium 144 Potassium 4.1 Chloride 102 Carbon Dioxide 32 H Anion Gap 10 BUN 19.0 H Creatinine 0.9 GFR Calculation 59 BUN/Creatinine Ratio 21 Glucose 99 Calculated Osmolality 279 Calcium 8.8 Icterus Index < 2 Specimen Hemolysis < 15 Assessment and Plan (1) Acute psychosis Problem details: R/O Schizophrenia R/O Delusional disorder Current visit: Yes Status: Acute (2) Major neurocognitive disorder Current visit: Yes Status: Acute (3) COPD (chronic obstructive pulmonary disease) Current visit: Yes Status: Acute (4) Hypertension Current visit: Yes Status: Acute (5) Glaucoma Current visit: Yes Status: Acute (6) Hypothyroidism Current visit: Yes Status: Acute (7) Osteoarthritis Current visit: Yes Status: Acute (8) Vitamin B12 deficiency Current visit: Yes Status: Acute Increase Zyprexa Zydis to 5mg PO daily at dinnertime (dissolved in drink without patient's knowledge); informed consent given by guardian. Hospital Course Summary Disclaimer: The visit summary below is not to be considered part of the above Progress Note. Hospital Course: 04/15/17 Impression Hypokalemia- POA Psychosis Schizophrenia COPD Hypertension Glaucoma Hypothyroidism Osteoarthritis Plan Agree with admission to [facility] under the care of Dr. Katz for further psychiatric evaluation and treatment. All medical screening reviewed. Will recommend treating the mild hypokalemia with a one-time dose of potassium 40meq. It appears she is on Lasix BID without scheduled potassium supplementation. Will then schedule 10 meq daily. Monitor blood pressure, It does not appear the patient is on any antihypertensives currently. Encourage patient to participate in unit activities and provide a safe environment. Hospital services will continue to follow patient covering for PCP, Dr. Zarate 04/15/17 Psych: Admit - continued home medications. 04/16/17 Psych: Attempting to obtain records from [place] to assess whether patient has previously been diagnosed as bipolar - if so, would like to start Depakote once obtaining consent from [facility]. Have ordered Vitamin B12 1000mg IM x 3 days due to low B12 upon admission. 04/17/17 12:55 Some paranoia but no behaviors. Continue current care 04/18/17 12:42 Some paranoia. Continue current care 04/19/17 11:03 Some paranoia but mild. [facility] records have a past diagnosis of Unspecified Schizophrenia and a neurocognitive Disorder. (Possibly Delusional Disorder). PT reportedly did well on Haldol in the past but it was stopped. 04/20/17 Psych: Will start Zyprexa 2.5mg PO in drink at dinner; informed consent given by guardian to give medication without patient's knowledge. 04/21/17 Psych: Zyprexa started last night - if well-tolerated, can increase to 5mg PO daily on 04/22. Will also continue weekly IM Vitamin B12 x 1 month then monthly injections thereafter. Would prefer to use different antipsychotic as patient is already obese but limited as it must be dissolved in patient's drink. 04/22/17 Psych: Increase Zyprexa Zydis to 5mg PO daily at dinnertime (dissolved in drink without patient's knowledge); informed consent given by guardian.
[2017-04-22] MEDS ORDERED: CYANOCOBALAMIN (B-12) 1,000mcg/ml INJECTION IM SCH ×2 (14:15→14:30)
--- NOTE | 2017-04-22 14:44 | Progress Note ---
- Date 04/22/17 Subjective: Tammie is seen today in follow up while resting in bed. Nursing staff reports that patient had some blood this morning when having a bowel movement. Nursing staff reports that this has previously happened and staff think she has hemorrhoids. On examination she is having no rectal pain or itching. No obvious hemorrhoid noted however she does have some rotation at the rectal opening with erythema. Objective Vital signs: Temperature 97.2 F 04/22/17 08:00 Pulse Rate 81 04/22/17 08:00 Respiratory Rate 18 04/22/17 08:00 Blood Pressure 152/67 H 04/22/17 08:00 Pulse Oximetry 99 04/22/17 08:00 Height/Weight/BMI: Height 1.63 m Weight 96.7 kg Body Mass Index 36.4 - Constitutional Present: no acute distress, well nourished, well developed - Routine HEENT Exam Eye: Present: EOMI ENT: Present: mucous membranes moist, dentition normal - Routine Respiratory Exam Present: CTA bilaterally. Absent: wheezes - Routine Cardiovascular Exam Present: RRR. Absent: murmur - Routine Abdominal Exam Present: soft, normoactive bowel sounds, non distended. Absent: tenderness - Routine Rectal Exam Patient deferred: visual exam Visual: Present: normal rectal tone Digital: Present: normal inspection Comments: Mild erythema/irritation at rectal sphincter - Routine Extremities Exam Present: full ROM, normal capillary refill - Routine Back/Spine/Pelvis Exam Back/Spine: Present: full ROM - Routine Skin Exam Present: intact, dry, warm - Routine Neurological Exam Present: alert, CN II-XII intact, moving all extremities - Routine Lymphatic Exam Lymphatic: Absent: adenopathy - Routine Psychiatric Exam Present: normal affect, cooperative Results - Labs CBC & Chem 7: 04/22/17 09:58 04/22/17 09:58 Assessment and Plan (1) Acute psychosis Problem details: R/O Schizophrenia R/O Delusional disorder Current visit: Yes Status: Acute Assessment and Plan: Impression Hypokalemia- resolved Psychosis Schizophrenia COPD Hypertension Glaucoma Hypothyroidism Osteoarthritis Plan Recheck labs today. Hemoglobin remained stable at 14.1 Hypokalemia has resolved, hypernatremia has improved. Monitor for evidence of further bleeding. It does appear on exam. Patient has some localized irritation. Can use Preparation H topical cream as needed Otherwise appears to be medically stable. Vital signs reviewed. - Physician Narrative Narrative: Date: 04/22/17 Time: 1441 Hospital Course Summary Disclaimer: The visit summary below is not to be considered part of the above Progress Note. Hospital Course: 04/15/17 Impression Hypokalemia- POA Psychosis Schizophrenia COPD Hypertension Glaucoma Hypothyroidism Osteoarthritis Plan Agree with admission to [facility] under the care of Dr. Katz for further psychiatric evaluation and treatment. All medical screening reviewed. Will recommend treating the mild hypokalemia with a one-time dose of potassium 40meq. It appears she is on Lasix BID without scheduled potassium supplementation. Will then schedule 10 meq daily. Monitor blood pressure, It does not appear the patient is on any antihypertensives currently. Encourage patient to participate in unit activities and provide a safe environment. Hospital services will continue to follow patient covering for PCP, Dr. Zarate 04/15/17 Psych: Admit - continued home medications. 04/16/17 Psych: Attempting to obtain records from [place] to assess whether patient has previously been diagnosed as bipolar - if so, would like to start Depakote once obtaining consent from [facility]. Have ordered Vitamin B12 1000mg IM x 3 days due to low B12 upon admission. 04/17/17 12:55 Some paranoia but no behaviors. Continue current care 04/18/17 12:42 Some paranoia. Continue current care 04/19/17 11:03 Some paranoia but mild. [facility] records have a past diagnosis of Unspecified Schizophrenia and a neurocognitive Disorder. (Possibly Delusional Disorder). PT reportedly did well on Haldol in the past but it was stopped. 04/20/17 Psych: Will start Zyprexa 2.5mg PO in drink at dinner; informed consent given by guardian to give medication without patient's knowledge. 04/21/17 Psych: Zyprexa started last night - if well-tolerated, can increase to 5mg PO daily on 04/22. Will also continue weekly IM Vitamin B12 x 1 month then monthly injections thereafter. Would prefer to use different antipsychotic as patient is already obese but limited as it must be dissolved in patient's drink. 04/22/17 Psych: Increase Zyprexa Zydis to 5mg PO daily at dinnertime (dissolved in drink without patient's knowledge); informed consent given by guardian.
[2017-04-22] MEDS ORDERED: BENZOCAINE 20% HEMORRHOIDAL OINT 28 GM TOP PRN (14:47)
[2017-04-22] MEDS: OLANZapine ODT 5 MG TABLET PO SCH (16:46)
[2017-04-22] MEDS: SENNOSIDES 8.6 MG TABLET PO SCH (21:02)
[2017-04-22] MEDS: ACETAMINOPHEN 500 MG TABLET PO PRN (21:35)
[2017-04-23] MEDS: LEVOTHYROXINE 75 MCG TABLET PO SCH (06:22)
[2017-04-23] MEDS: PANTOPRAZOLE 40 MG TABLET PO SCH (06:22)
[2017-04-23] MEDS: FUROSEMIDE 20 MG TABLET PO SCH ×2 (07:42→15:50)
--- NOTE | 2017-04-23 09:39 | Neuropsych Progress Note ---
[facility] Subjective Date: 04/24/17 - Sujective/Severity of Illness Medications: Acetaminophen (Tylenol) 1,000 mg PO Q6H PRN PRN Reason: Pain Last Admin: 04/22/17 21:35 Dose: 1,000 mg Al Hydroxide/Mg Hydroxide (Maalox Plus) 5 ml PO BID PRN PRN Reason: Indigestion Benzocaine (Preparation H) 1 applic TOP Q4H PRN PRN Reason: Hemorrhoids Cyanocobalamin (Vit. B-12) 1,000 mcg IM Q7D [facility] Stop: 05/13/17 14:31 Last Admin: 04/22/17 15:45 Dose: 1,000 mcg Docusate Sodium (Colace) 100 mg PO DAILY PRN PRN Reason: Constipation Last Admin: 04/22/17 08:36 Dose: 100 mg Furosemide (Lasix) 20 mg PO 0800,1400 [facility] Last Admin: 04/23/17 07:42 Dose: 20 mg Haloperidol (Haldol) 0.5 mg PO Q6H PRN PRN Reason: Extreme agitation Haloperidol Lactate (Haldol) 0.5 mg IM Q6H PRN PRN Reason: Extreme agitation Levothyroxine Sodium (Synthroid) 75 mcg PO ACB [facility] Last Admin: 04/23/17 06:22 Dose: 75 mcg Lorazepam (Ativan) 0.5 mg PO Q6H PRN PRN Reason: Extreme agitation Lorazepam (Ativan Inj) 0.5 mg IM Q6H PRN PRN Reason: Extreme agitation Olanzapine (Zyprexa Zydis) 5 mg PO 17 [facility] Last Admin: 04/22/17 16:46 Dose: 5 mg Pantoprazole Sodium (Protonix Tab) 40 mg PO ACB [facility] Last Admin: 04/23/17 06:22 Dose: 40 mg Senna (Senna Lax) 17.2 mg PO HS [facility] Last Admin: 04/22/17 21:02 Dose: 17.2 mg Subjective: Patient seen and chart reviewed. Case discussed with treatment team. On interview, patient continues to have paranoid delusions but is less perseverative since starting the antipsychotic. She still states she "wants to be heard" by a person of authority such as a deputy sheriff custody or police investigator and doesn't want to return to her LTC facility until this is done. Patient denies any SI, HI or AVH. She denies any symptoms consistent with AE due to psychotropic medications. Nursing staff report patient has not had significant behavioral difficulties on the unit. Patient has been adherent with medications but is not aware she is taking an antipsychotic (informed consent obtained from guardian). Patient slept 8 hours overnight. VSS. Patient is eating well. Psychotropic PRNs required in the past 24 hours: none. Start Time: 16:20 Stop Time: 16:40 Mental Status Exam Vitals: Last Vital Signs Temp 96.8 F 04/23/17 07:45 Pulse 71 04/23/17 07:45 Resp 16 04/23/17 07:45 BP 126/73 04/23/17 07:45 Pulse Ox 96 04/23/17 07:45 Height: 1.63 m Weight: 96.7 kg - Mental Status Exam Muscle Strength/Tone: Normal Dressing: Casual Grooming: Fair Attitude: Cooperative Motor Activity: Normal Eye Contact: Good Speech: Normal Volume: Normal Rhythm: Appropriate Rhythm Orientation: Disoriented to time, Disoriented to situation, Oriented to person, Oriented to place Mood: Euthymic Rate of Thoughts: Pressured (milkd) Thought Organization: Perseverations (on delusions) Associations: Intact Abstract Reasoning: Poor abstract reasoning Thought Content: Delusions, Paranoia Perception/Psychotic: Perception Normal Language: Naming Intact Fund of Knowledge: Poor fund of knowledge Memory: Poor-recent Suicidal Ideation: Denies Homicidal Ideation: Denies Insight: Impaired Judgement: Impaired Impulse Control: Fair - Laboratory Result Diagrams: 04/22/17 09:58 04/22/17 09:58 Laboratory Results - last 24 hr 04/22/17 04/22/17 09:58 09:58 WBC 5.8 RBC 4.20 Hgb 14.1 Hct 42.5 MCV 101.2 H MCH 33.6 MCHC 33.2 RDW Std Deviation 46.8 Plt Count 263 MPV 10.8 Immature Gran % (Auto) 0.2 Neut % (Auto) 64.3 Lymph % (Auto) 21.9 L [place] % (Auto) 8.1 Eos % (Auto) 4.8 H Baso % (Auto) 0.7 Neut # (Auto) 3.7 Lymph # (Auto) 1.3 [place] # (Auto) 0.5 Eos # (Auto) 0.3 Baso # (Auto) 0.0 Abs Immat Gran (auto) 0.01 Turbidity < 20 Sodium 144 Potassium 4.1 Chloride 102 Carbon Dioxide 32 H Anion Gap 10 BUN 19.0 H Creatinine 0.9 GFR Calculation 59 BUN/Creatinine Ratio 21 Glucose 99 Calculated Osmolality 279 Calcium 8.8 Icterus Index < 2 Specimen Hemolysis < 15 Assessment and Plan (1) Acute psychosis Problem details: R/O Schizophrenia R/O Delusional disorder Current visit: Yes Status: Acute (2) Major neurocognitive disorder Current visit: Yes Status: Acute (3) COPD (chronic obstructive pulmonary disease) Current visit: Yes Status: Acute (4) Hypertension Current visit: Yes Status: Acute (5) Glaucoma Current visit: Yes Status: Acute (6) Hypothyroidism Current visit: Yes Status: Acute (7) Osteoarthritis Current visit: Yes Status: Acute (8) Vitamin B12 deficiency Current visit: Yes Status: Acute Continue current care as Zyprexa was just increased. May need to increase further or consider different antipsychotic that could also be hidden in drink. Hospital Course Summary Disclaimer: The visit summary below is not to be considered part of the above Progress Note. Hospital Course: 04/15/17 Impression Hypokalemia- POA Psychosis Schizophrenia COPD Hypertension Glaucoma Hypothyroidism Osteoarthritis Plan Agree with admission to [facility] under the care of Dr. Katz for further psychiatric evaluation and treatment. All medical screening reviewed. Will recommend treating the mild hypokalemia with a one-time dose of potassium 40meq. It appears she is on Lasix BID without scheduled potassium supplementation. Will then schedule 10 meq daily. Monitor blood pressure, It does not appear the patient is on any antihypertensives currently. Encourage patient to participate in unit activities and provide a safe environment. Hospital services will continue to follow patient covering for PCP, Dr. Zarate 04/15/17 Psych: Admit - continued home medications. 04/16/17 Psych: Attempting to obtain records from [place] to assess whether patient has previously been diagnosed as bipolar - if so, would like to start Depakote once obtaining consent from [facility]. Have ordered Vitamin B12 1000mg IM x 3 days due to low B12 upon admission. 04/17/17 12:55 Some paranoia but no behaviors. Continue current care 04/18/17 12:42 Some paranoia. Continue current care 04/19/17 11:03 Some paranoia but mild. [facility] records have a past diagnosis of Unspecified Schizophrenia and a neurocognitive Disorder. (Possibly Delusional Disorder). PT reportedly did well on Haldol in the past but it was stopped. 04/20/17 Psych: Will start Zyprexa 2.5mg PO in drink at dinner; informed consent given by guardian to give medication without patient's knowledge. 04/21/17 Psych: Zyprexa started last night - if well-tolerated, can increase to 5mg PO daily on 04/22. Will also continue weekly IM Vitamin B12 x 1 month then monthly injections thereafter. Would prefer to use different antipsychotic as patient is already obese but limited as it must be dissolved in patient's drink. 04/22/17 Psych: Increase Zyprexa Zydis to 5mg PO daily at dinnertime (dissolved in drink without patient's knowledge); informed consent given by guardian. 04/23/17 Psych: Continue current care as Zyprexa was just increased. May need to increase further or consider different antipsychotic that could also be hidden in drink.
[2017-04-23] MEDS: OLANZapine ODT 5 MG TABLET PO SCH (17:55)
[2017-04-23] MEDS: SENNOSIDES 8.6 MG TABLET PO SCH (20:10)
[2017-04-23] MEDS: ACETAMINOPHEN 500 MG TABLET PO PRN (21:57)
[2017-04-24] MEDS: LEVOTHYROXINE 75 MCG TABLET PO SCH (09:18)
[2017-04-24] MEDS: FUROSEMIDE 20 MG TABLET PO SCH ×2 (09:18→14:48)
[2017-04-24] MEDS: PANTOPRAZOLE 40 MG TABLET PO SCH (09:18)
--- NOTE | 2017-04-24 12:04 | Neuropsych Progress Note ---
[facility] Subjective Date: 04/24/17 - Sujective/Severity of Illness Medications: Acetaminophen (Tylenol) 1,000 mg PO Q6H PRN PRN Reason: Pain Last Admin: 04/23/17 21:57 Dose: 1,000 mg Al Hydroxide/Mg Hydroxide (Maalox Plus) 5 ml PO BID PRN PRN Reason: Indigestion Benzocaine (Preparation H) 1 applic TOP Q4H PRN PRN Reason: Hemorrhoids Cyanocobalamin (Vit. B-12) 1,000 mcg IM Q7D [facility] Stop: 05/13/17 14:31 Last Admin: 04/22/17 15:45 Dose: 1,000 mcg Docusate Sodium (Colace) 100 mg PO DAILY PRN PRN Reason: Constipation Last Admin: 04/22/17 08:36 Dose: 100 mg Furosemide (Lasix) 20 mg PO 0800,1400 [facility] Last Admin: 04/24/17 09:18 Dose: 20 mg Haloperidol (Haldol) 0.5 mg PO Q6H PRN PRN Reason: Extreme agitation Haloperidol Lactate (Haldol) 0.5 mg IM Q6H PRN PRN Reason: Extreme agitation Levothyroxine Sodium (Synthroid) 75 mcg PO ACB [facility] Last Admin: 04/24/17 09:18 Dose: 75 mcg Lorazepam (Ativan) 0.5 mg PO Q6H PRN PRN Reason: Extreme agitation Lorazepam (Ativan Inj) 0.5 mg IM Q6H PRN PRN Reason: Extreme agitation Olanzapine (Zyprexa Zydis) 5 mg PO 17 [facility] Last Admin: 04/23/17 17:55 Dose: 5 mg Pantoprazole Sodium (Protonix Tab) 40 mg PO ACB [facility] Last Admin: 04/24/17 09:18 Dose: 40 mg Senna (Senna Lax) 17.2 mg PO [facility] Last Admin: 04/23/17 20:10 Dose: Not Given Subjective: Patient seen and chart reviewed. Case discussed with treatment team. Nursing reports pt is doing fairly well. Sleeping well and has a good appetite. Remains paranoid but is redirectable. On face to face the pt is pleasant. She continues to focus on her clothes being given away but she reports her mood is stable. Denies any S/I. Tolerating meds Start Time: 11:30 Stop Time: 11:45 Mental Status Exam Vitals: Last Vital Signs Temp 97.4 F 04/24/17 08:00 Pulse 80 04/24/17 08:00 Resp 16 04/24/17 08:00 BP 129/78 04/24/17 08:00 Pulse Ox 98 04/24/17 08:00 Height: 1.63 m Weight: 96.7 kg - Mental Status Exam Muscle Strength/Tone: Normal Dressing: Casual Grooming: Fair Attitude: Cooperative Motor Activity: Normal Eye Contact: Good Speech: Normal Volume: Normal Rhythm: Appropriate Rhythm Orientation: Disoriented to time, Disoriented to situation, Oriented to person, Oriented to place Mood: Euthymic Rate of Thoughts: Pressured (milkd) Thought Organization: Perseverations (on delusions) Associations: Intact Abstract Reasoning: Poor abstract reasoning Thought Content: Delusions, Paranoia Perception/Psychotic: Perception Normal Language: Naming Intact Fund of Knowledge: Poor fund of knowledge Memory: Poor-recent Suicidal Ideation: Denies Homicidal Ideation: Denies Insight: Impaired Judgement: Impaired Impulse Control: Fair - Laboratory Result Diagrams: 04/22/17 09:58 04/22/17 09:58 Assessment and Plan (1) Acute psychosis Problem details: R/O Schizophrenia R/O Delusional disorder Current visit: Yes Status: Acute (2) Major neurocognitive disorder Current visit: Yes Status: Acute (3) COPD (chronic obstructive pulmonary disease) Current visit: Yes Status: Acute (4) Hypertension Current visit: Yes Status: Acute (5) Glaucoma Current visit: Yes Status: Acute (6) Hypothyroidism Current visit: Yes Status: Acute (7) Osteoarthritis Current visit: Yes Status: Acute (8) Vitamin B12 deficiency Current visit: Yes Status: Acute Hospital Course Summary Disclaimer: The visit summary below is not to be considered part of the above Progress Note. Hospital Course: 04/15/17 Impression Hypokalemia- POA Psychosis Schizophrenia COPD Hypertension Glaucoma Hypothyroidism Osteoarthritis Plan Agree with admission to [facility] under the care of Dr. Katz for further psychiatric evaluation and treatment. All medical screening reviewed. Will recommend treating the mild hypokalemia with a one-time dose of potassium 40meq. It appears she is on Lasix BID without scheduled potassium supplementation. Will then schedule 10 meq daily. Monitor blood pressure, It does not appear the patient is on any antihypertensives currently. Encourage patient to participate in unit activities and provide a safe environment. Hospital services will continue to follow patient covering for PCP, Dr. Zarate 04/15/17 Psych: Admit - continued home medications. 04/16/17 Psych: Attempting to obtain records from [facility] to assess whether patient has previously been diagnosed as bipolar - if so, would like to start Depakote once obtaining consent from [facility]. Have ordered Vitamin B12 1000mg IM x 3 days due to low B12 upon admission. 04/17/17 12:55 Some paranoia but no behaviors. Continue current care 04/18/17 12:42 Some paranoia. Continue current care 04/19/17 11:03 Some paranoia but mild. [facility] records have a past diagnosis of Unspecified Schizophrenia and a neurocognitive Disorder. (Possibly Delusional Disorder). PT reportedly did well on Haldol in the past but it was stopped. 04/20/17 Psych: Will start Zyprexa 2.5mg PO in drink at dinner; informed consent given by guardian to give medication without patient's knowledge. 04/21/17 Psych: Zyprexa started last night - if well-tolerated, can increase to 5mg PO daily on 04/22. Will also continue weekly IM Vitamin B12 x 1 month then monthly injections thereafter. Would prefer to use different antipsychotic as patient is already obese but limited as it must be dissolved in patient's drink. 04/22/17 Psych: Increase Zyprexa Zydis to 5mg PO daily at dinnertime (dissolved in drink without patient's knowledge); informed consent given by guardian. 04/23/17 Psych: Continue current care as Zyprexa was just increased. May need to increase further or consider different antipsychotic that could also be hidden in drink. 04/24/17 12:03 Increase Zyprexa to 7.5mg at HS to target paranoia
[2017-04-24] MEDS: TIMOLOL 0.5% EYE DROPS 5 ML EACH EYE SCH (16:26)
[2017-04-24] MEDS: OLANZapine ODT 5 MG TABLET PO SCH (17:16)
[2017-04-24] MEDS: LATANOPROST 0.005% EYE DROPS 2.5ml EACH EYE SCH (21:45)
[2017-04-24] MEDS: SENNOSIDES 8.6 MG TABLET PO SCH (21:56)
[2017-04-25] MEDS: PANTOPRAZOLE 40 MG TABLET PO SCH (05:58)
[2017-04-25] MEDS: LEVOTHYROXINE 75 MCG TABLET PO SCH (05:58)
[2017-04-25] MEDS: TIMOLOL 0.5% EYE DROPS 5 ML EACH EYE SCH (09:36)
[2017-04-25] MEDS: FUROSEMIDE 20 MG TABLET PO SCH ×2 (09:36→16:27)
--- NOTE | 2017-04-25 10:07 | Progress Note ---
- Date 04/25/17 Subjective: Tammie is seen today in follow up for her paranoia. She is seen while resting in bed and arouses easily with soft touch. She denies any complaints or concerns including no chest pain, shortness of breath, abdominal pain, nausea, vomiting or dysuria. Nursing reports that she continues to express paranoid thoughts but has been cooperative with cares. Her appetite is good and bowels are moving. Objective Vital signs: Temperature 97.0 F 04/25/17 08:00 Pulse Rate 79 04/25/17 08:00 Respiratory Rate 14 04/25/17 08:00 Blood Pressure 130/75 04/25/17 08:00 Pulse Oximetry 98 04/25/17 08:00 Height/Weight/BMI: Height 5 ft 4 in Weight 213 lb 2.992 oz Body Mass Index 36.4 Comments: sleeping in bed, arouses easily with soft touch. - Constitutional Present: no acute distress, well nourished, well developed, cooperative - Routine HEENT Exam Head: Present: normocephalic, atraumatic Eye: Present: PERRL. Absent: conjunctival icterus ENT: Present: mucous membranes moist - Routine Respiratory Exam Present: CTA bilaterally. Absent: stridor, wheezes, crackles - Routine Cardiovascular Exam Present: RRR, S1, S2 - Routine Abdominal Exam Present: soft, normoactive bowel sounds, non distended, non tender - Routine Extremities Exam Present: edema (trace), non tender, pulses intact - Routine Back/Spine/Pelvis Exam Back/Spine: Present: full ROM. Absent: vertebral tenderness - Routine Musculoskeletal Exam Musculoskeletal: Present: moving extremities well - Routine Skin Exam Present: intact, dry, warm. Absent: jaundice Comments: afebrile - Routine Neurological Exam Present: alert, oriented X3, moving all extremities, normal speech - Routine Lymphatic Exam Lymphatic: Absent: lymphedema - Routine Psychiatric Exam Present: cooperative Results - Labs CBC & Chem 7: 04/22/17 09:58 04/22/17 09:58 Assessment and Plan (1) Acute psychosis Problem details: R/O Schizophrenia R/O Delusional disorder Current visit: Yes Status: Acute Assessment and Plan: Impression Hypokalemia- resolved Psychosis Schizophrenia COPD Hypertension Glaucoma Hypothyroidism Osteoarthritis Plan-04/25 (Mirakian) Overall, Tammie appears medically stable. Continue psychiatric care per team. Continue to provide safe and supportive environment. Continue preparation H topical cream for hemorrhoids with bowel motivation. Continue current cares. Resuscitation Status: Full Code - Time spent with patient Time with patient PN: 25 minutes - Physician Narrative Physician: Rachel Paul MD Narrative: Date: 04/25/17 Time: 1002 Hospital Course Summary Disclaimer: The visit summary below is not to be considered part of the above Progress Note. Hospital Course: 04/15/17 Impression Hypokalemia- POA Psychosis Schizophrenia COPD Hypertension Glaucoma Hypothyroidism Osteoarthritis Plan Agree with admission to [facility] under the care of Dr. Katz for further psychiatric evaluation and treatment. All medical screening reviewed. Will recommend treating the mild hypokalemia with a one-time dose of potassium 40meq. It appears she is on Lasix BID without scheduled potassium supplementation. Will then schedule 10 meq daily. Monitor blood pressure, It does not appear the patient is on any antihypertensives currently. Encourage patient to participate in unit activities and provide a safe environment. Hospital services will continue to follow patient covering for PCP, Dr. Zarate 04/15/17 Psych: Admit - continued home medications. 04/16/17 Psych: Attempting to obtain records from [place] to assess whether patient has previously been diagnosed as bipolar - if so, would like to start Depakote once obtaining consent from [facility]. Have ordered Vitamin B12 1000mg IM x 3 days due to low B12 upon admission. 04/17/17 12:55 Some paranoia but no behaviors. Continue current care 04/18/17 12:42 Some paranoia. Continue current care 04/19/17 11:03 Some paranoia but mild. [facility] records have a past diagnosis of Unspecified Schizophrenia and a neurocognitive Disorder. (Possibly Delusional Disorder). PT reportedly did well on Haldol in the past but it was stopped. 04/20/17 Psych: Will start Zyprexa 2.5mg PO in drink at dinner; informed consent given by guardian to give medication without patient's knowledge. 04/21/17 Psych: Zyprexa started last night - if well-tolerated, can increase to 5mg PO daily on 04/22. Will also continue weekly IM Vitamin B12 x 1 month then monthly injections thereafter. Would prefer to use different antipsychotic as patient is already obese but limited as it must be dissolved in patient's drink. 04/22/17 Psych: Increase Zyprexa Zydis to 5mg PO daily at dinnertime (dissolved in drink without patient's knowledge); informed consent given by guardian. 04/23/17 Psych: Continue current care as Zyprexa was just increased. May need to increase further or consider different antipsychotic that could also be hidden in drink. 04/24/17 12:03 Increase Zyprexa to 7.5mg at HS to target paranoia Plan-04/25 (Mirakian) Overall, Tammie appears medically stable. Continue psychiatric care per team. Continue to provide safe and supportive environment. Continue preparation H topical cream for hemorrhoids with bowel motivation. Continue current cares.
--- NOTE | 2017-04-25 11:24 | Neuropsych Progress Note ---
[facility] Subjective Date: 04/25/17 - Sujective/Severity of Illness Medications: Acetaminophen (Tylenol) 1,000 mg PO Q6H PRN PRN Reason: Pain Last Admin: 04/23/17 21:57 Dose: 1,000 mg Al Hydroxide/Mg Hydroxide (Maalox Plus) 5 ml PO BID PRN PRN Reason: Indigestion Benzocaine (Preparation H) 1 applic TOP Q4H PRN PRN Reason: Hemorrhoids Cyanocobalamin (Vit. B-12) 1,000 mcg IM Q7D [facility] Stop: 05/13/17 14:31 Last Admin: 04/22/17 15:45 Dose: 1,000 mcg Docusate Sodium (Colace) 100 mg PO DAILY PRN PRN Reason: Constipation Last Admin: 04/22/17 08:36 Dose: 100 mg Furosemide (Lasix) 20 mg PO 0800,1400 [facility] Last Admin: 04/25/17 09:36 Dose: 20 mg Haloperidol (Haldol) 0.5 mg PO Q6H PRN PRN Reason: Extreme agitation Haloperidol Lactate (Haldol) 0.5 mg IM Q6H PRN PRN Reason: Extreme agitation Latanoprost (Xalatan) 1 drops EACH EYE HS [facility] Last Admin: 04/24/17 21:45 Dose: 1 drops Levothyroxine Sodium (Synthroid) 75 mcg PO ACB [facility] Last Admin: 04/25/17 05:58 Dose: 75 mcg Lorazepam (Ativan) 0.5 mg PO Q6H PRN PRN Reason: Extreme agitation Lorazepam (Ativan Inj) 0.5 mg IM Q6H PRN PRN Reason: Extreme agitation Olanzapine (Zyprexa Zydis) 7.5 mg PO 17 [facility] Last Admin: 04/24/17 17:16 Dose: 7.5 mg Pantoprazole Sodium (Protonix Tab) 40 mg PO ACB [facility] Last Admin: 04/25/17 05:58 Dose: 40 mg Senna (Senna Lax) 17.2 mg PO HS [facility] Last Admin: 04/24/17 21:56 Dose: Not Given Timolol Maleate (Timoptic 0.5% Eye Drops) 1 drops EACH EYE DAILY [facility] Last Admin: 04/25/17 09:36 Dose: 1 drops Subjective: Pt seen and chart examined. Nursing reports pt is doing well. Sleeping well and has a good appetite. on face to face the pt is pleasant. She continues to focus on people taking her stuff. She denies any S/I and reports her mood is stable. Tolerating meds Start Time: 11:00 Stop Time: 11:15 Mental Status Exam Vitals: Last Vital Signs Temp 97.0 F 04/25/17 08:00 Pulse 79 04/25/17 08:00 Resp 14 04/25/17 08:00 BP 130/75 04/25/17 08:00 Pulse Ox 98 04/25/17 08:00 Height: 1.63 m Weight: 96.7 kg - Mental Status Exam Muscle Strength/Tone: Normal Dressing: Casual Grooming: Fair Attitude: Cooperative Motor Activity: Normal Eye Contact: Good Speech: Normal Volume: Normal Rhythm: Appropriate Rhythm Orientation: Disoriented to time, Disoriented to situation, Oriented to person, Oriented to place Mood: Euthymic Rate of Thoughts: Pressured (milkd) Thought Organization: Perseverations (on delusions) Associations: Intact Abstract Reasoning: Poor abstract reasoning Thought Content: Delusions, Paranoia Perception/Psychotic: Perception Normal Language: Naming Intact Fund of Knowledge: Poor fund of knowledge Memory: Poor-recent Suicidal Ideation: Denies Homicidal Ideation: Denies Insight: Impaired Judgement: Impaired Impulse Control: Fair - Laboratory Result Diagrams: 04/22/17 09:58 04/22/17 09:58 Assessment and Plan (1) Acute psychosis Problem details: R/O Schizophrenia R/O Delusional disorder Current visit: Yes Status: Acute (2) Major neurocognitive disorder Current visit: Yes Status: Acute (3) COPD (chronic obstructive pulmonary disease) Current visit: Yes Status: Acute (4) Hypertension Current visit: Yes Status: Acute (5) Glaucoma Current visit: Yes Status: Acute (6) Hypothyroidism Current visit: Yes Status: Acute (7) Osteoarthritis Current visit: Yes Status: Acute (8) Vitamin B12 deficiency Current visit: Yes Status: Acute Hospital Course Summary Disclaimer: The visit summary below is not to be considered part of the above Progress Note. Hospital Course: 04/15/17 Impression Hypokalemia- POA Psychosis Schizophrenia COPD Hypertension Glaucoma Hypothyroidism Osteoarthritis Plan Agree with admission to [facility] under the care of Dr. Katz for further psychiatric evaluation and treatment. All medical screening reviewed. Will recommend treating the mild hypokalemia with a one-time dose of potassium 40meq. It appears she is on Lasix BID without scheduled potassium supplementation. Will then schedule 10 meq daily. Monitor blood pressure, It does not appear the patient is on any antihypertensives currently. Encourage patient to participate in unit activities and provide a safe environment. Hospital services will continue to follow patient covering for PCP, Dr. Zarate 04/15/17 Psych: Admit - continued home medications. 04/16/17 Psych: Attempting to obtain records from [place] to assess whether patient has previously been diagnosed as bipolar - if so, would like to start Depakote once obtaining consent from [facility]. Have ordered Vitamin B12 1000mg IM x 3 days due to low B12 upon admission. 04/17/17 12:55 Some paranoia but no behaviors. Continue current care 04/18/17 12:42 Some paranoia. Continue current care 04/19/17 11:03 Some paranoia but mild. [facility] records have a past diagnosis of Unspecified Schizophrenia and a neurocognitive Disorder. (Possibly Delusional Disorder). PT reportedly did well on Haldol in the past but it was stopped. 04/20/17 Psych: Will start Zyprexa 2.5mg PO in drink at dinner; informed consent given by guardian to give medication without patient's knowledge. 04/21/17 Psych: Zyprexa started last night - if well-tolerated, can increase to 5mg PO daily on 04/22. Will also continue weekly IM Vitamin B12 x 1 month then monthly injections thereafter. Would prefer to use different antipsychotic as patient is already obese but limited as it must be dissolved in patient's drink. 04/22/17 Psych: Increase Zyprexa Zydis to 5mg PO daily at dinnertime (dissolved in drink without patient's knowledge); informed consent given by guardian. 04/23/17 Psych: Continue current care as Zyprexa was just increased. May need to increase further or consider different antipsychotic that could also be hidden in drink. 04/24/17 12:03 Increase Zyprexa to 7.5mg at HS to target paranoia Plan-04/25 (Mirakian) Overall, Tammie appears medically stable. Continue psychiatric care per team. Continue to provide safe and supportive environment. Continue preparation H topical cream for hemorrhoids with bowel motivation. Continue current cares. 04/25/17 11:23 Some paranoia remains. Continue current care as Zyprexa was just increased
[2017-04-25] MEDS: OLANZapine ODT 5 MG TABLET PO SCH (16:26)
[2017-04-25] MEDS: LATANOPROST 0.005% EYE DROPS 2.5ml EACH EYE SCH (20:45)
[2017-04-25] MEDS: SENNOSIDES 8.6 MG TABLET PO SCH (20:46)
[2017-04-26] MEDS: LEVOTHYROXINE 75 MCG TABLET PO SCH (06:03)
[2017-04-26] MEDS: PANTOPRAZOLE 40 MG TABLET PO SCH (06:03)
[2017-04-26] MEDS: FUROSEMIDE 20 MG TABLET PO SCH ×2 (08:10→17:10)
[2017-04-26] MEDS: TIMOLOL 0.5% EYE DROPS 5 ML EACH EYE SCH (08:11)
--- NOTE | 2017-04-26 10:32 | Neuropsych Progress Note ---
[facility] Subjective Date: 04/26/17 - Sujective/Severity of Illness Medications: Acetaminophen (Tylenol) 1,000 mg PO Q6H PRN PRN Reason: Pain Last Admin: 04/23/17 21:57 Dose: 1,000 mg Al Hydroxide/Mg Hydroxide (Maalox Plus) 5 ml PO BID PRN PRN Reason: Indigestion Benzocaine (Preparation H) 1 applic TOP Q4H PRN PRN Reason: Hemorrhoids Cyanocobalamin (Vit. B-12) 1,000 mcg IM Q7D [facility] Stop: 05/13/17 14:31 Last Admin: 04/22/17 15:45 Dose: 1,000 mcg Docusate Sodium (Colace) 100 mg PO DAILY PRN PRN Reason: Constipation Last Admin: 04/22/17 08:36 Dose: 100 mg Furosemide (Lasix) 20 mg PO 0800,1400 [facility] Last Admin: 04/26/17 08:10 Dose: 20 mg Haloperidol (Haldol) 0.5 mg PO Q6H PRN PRN Reason: Extreme agitation Haloperidol Lactate (Haldol) 0.5 mg IM Q6H PRN PRN Reason: Extreme agitation Latanoprost (Xalatan) 1 drops EACH EYE HS [facility] Last Admin: 04/25/17 20:45 Dose: 1 drops Levothyroxine Sodium (Synthroid) 75 mcg PO ACB [facility] Last Admin: 04/26/17 06:03 Dose: 75 mcg Lorazepam (Ativan) 0.5 mg PO Q6H PRN PRN Reason: Extreme agitation Lorazepam (Ativan Inj) 0.5 mg IM Q6H PRN PRN Reason: Extreme agitation Olanzapine (Zyprexa Zydis) 7.5 mg PO 17 [facility] Last Admin: 04/25/17 16:26 Dose: 7.5 mg Pantoprazole Sodium (Protonix Tab) 40 mg PO ACB [facility] Last Admin: 04/26/17 06:03 Dose: 40 mg Senna (Senna Lax) 17.2 mg PO HS [facility] Last Admin: 04/25/17 20:46 Dose: Not Given Timolol Maleate (Timoptic 0.5% Eye Drops) 1 drops EACH EYE DAILY [facility] Last Admin: 04/26/17 08:11 Dose: 1 drops Subjective: Pt seen and chart examined. Nursing reports pt is doing well. Sleeping well and has a good appetite. On face to face the pt is resting quietly in bed. She reports she is doing well and voices no concerns. Remains some what paranoid about [facility] giving away her things but not focused on it as in the past. Tolerating meds Start Time: 10:00 Stop Time: 10:15 Mental Status Exam Vitals: Last Vital Signs Temp 96.8 F 04/26/17 08:00 Pulse 82 04/26/17 08:00 Resp 16 04/26/17 08:00 BP 136/69 04/26/17 08:00 Pulse Ox 95 04/26/17 08:00 Height: 1.63 m Weight: 96.7 kg - Mental Status Exam Muscle Strength/Tone: Normal Dressing: Casual Grooming: Fair Attitude: Cooperative Motor Activity: Normal Eye Contact: Good Speech: Normal Volume: Normal Rhythm: Appropriate Rhythm Orientation: Disoriented to time, Disoriented to situation, Oriented to person, Oriented to place Mood: Euthymic Rate of Thoughts: Pressured (milkd) Thought Organization: Perseverations (on delusions) Associations: Intact Abstract Reasoning: Poor abstract reasoning Thought Content: Delusions, Paranoia Perception/Psychotic: Perception Normal Language: Naming Intact Fund of Knowledge: Poor fund of knowledge Memory: Poor-recent Suicidal Ideation: Denies Homicidal Ideation: Denies Insight: Impaired Judgement: Impaired Impulse Control: Fair - Laboratory Result Diagrams: 04/22/17 09:58 04/22/17 09:58 Assessment and Plan (1) Acute psychosis Problem details: R/O Schizophrenia R/O Delusional disorder Current visit: Yes Status: Acute (2) Major neurocognitive disorder Current visit: Yes Status: Acute (3) COPD (chronic obstructive pulmonary disease) Current visit: Yes Status: Acute (4) Hypertension Current visit: Yes Status: Acute (5) Glaucoma Current visit: Yes Status: Acute (6) Hypothyroidism Current visit: Yes Status: Acute (7) Osteoarthritis Current visit: Yes Status: Acute (8) Vitamin B12 deficiency Current visit: Yes Status: Acute Hospital Course Summary Disclaimer: The visit summary below is not to be considered part of the above Progress Note. Hospital Course: 04/15/17 Impression Hypokalemia- POA Psychosis Schizophrenia COPD Hypertension Glaucoma Hypothyroidism Osteoarthritis Plan Agree with admission to [facility] under the care of Dr. Katz for further psychiatric evaluation and treatment. All medical screening reviewed. Will recommend treating the mild hypokalemia with a one-time dose of potassium 40meq. It appears she is on Lasix BID without scheduled potassium supplementation. Will then schedule 10 meq daily. Monitor blood pressure, It does not appear the patient is on any antihypertensives currently. Encourage patient to participate in unit activities and provide a safe environment. Hospital services will continue to follow patient covering for PCP, Dr. Zarate 04/15/17 Psych: Admit - continued home medications. 04/16/17 Psych: Attempting to obtain records from [place] to assess whether patient has previously been diagnosed as bipolar - if so, would like to start Depakote once obtaining consent from [facility]. Have ordered Vitamin B12 1000mg IM x 3 days due to low B12 upon admission. 04/17/17 12:55 Some paranoia but no behaviors. Continue current care 04/18/17 12:42 Some paranoia. Continue current care 04/19/17 11:03 Some paranoia but mild. [facility] records have a past diagnosis of Unspecified Schizophrenia and a neurocognitive Disorder. (Possibly Delusional Disorder). PT reportedly did well on Haldol in the past but it was stopped. 04/20/17 Psych: Will start Zyprexa 2.5mg PO in drink at dinner; informed consent given by guardian to give medication without patient's knowledge. 04/21/17 Psych: Zyprexa started last night - if well-tolerated, can increase to 5mg PO daily on 04/22. Will also continue weekly IM Vitamin B12 x 1 month then monthly injections thereafter. Would prefer to use different antipsychotic as patient is already obese but limited as it must be dissolved in patient's drink. 04/22/17 Psych: Increase Zyprexa Zydis to 5mg PO daily at dinnertime (dissolved in drink without patient's knowledge); informed consent given by guardian. 04/23/17 Psych: Continue current care as Zyprexa was just increased. May need to increase further or consider different antipsychotic that could also be hidden in drink. 04/24/17 12:03 Increase Zyprexa to 7.5mg at HS to target paranoia Plan-04/25 ([place]ian) Overall, Tammie appears medically stable. Continue psychiatric care per team. Continue to provide safe and supportive environment. Continue preparation H topical cream for hemorrhoids with bowel motivation. Continue current cares. 04/25/17 11:23 Some paranoia remains. Continue current care as Zyprexa was just increased 04/26/17 10:31 Paranoia improving. Continue current care
[2017-04-26] MEDS: OLANZapine ODT 5 MG TABLET PO SCH (17:10)
[2017-04-26] MEDS: SENNOSIDES 8.6 MG TABLET PO SCH (20:00)
[2017-04-26] MEDS: LATANOPROST 0.005% EYE DROPS 2.5ml EACH EYE SCH (20:01)
[2017-04-26] MEDS: ACETAMINOPHEN 500 MG TABLET PO PRN (22:16)
[2017-04-27] MEDS: LEVOTHYROXINE 75 MCG TABLET PO SCH (06:16)
[2017-04-27] MEDS: PANTOPRAZOLE 40 MG TABLET PO SCH (06:16)
[2017-04-27] MEDS: TIMOLOL 0.5% EYE DROPS 5 ML EACH EYE SCH (10:06)
[2017-04-27] MEDS: FUROSEMIDE 20 MG TABLET PO SCH ×2 (10:06→15:01)
--- NOTE | 2017-04-27 13:46 | Neuropsych Progress Note ---
[facility] Subjective Date: 04/27/17 - Sujective/Severity of Illness Medications: Acetaminophen (Tylenol) 1,000 mg PO Q6H PRN PRN Reason: Pain Last Admin: 04/26/17 22:16 Dose: 1,000 mg Al Hydroxide/Mg Hydroxide (Maalox Plus) 5 ml PO BID PRN PRN Reason: Indigestion Benzocaine (Preparation H) 1 applic TOP Q4H PRN PRN Reason: Hemorrhoids Cyanocobalamin (Vit. B-12) 1,000 mcg IM Q7D [facility] Stop: 05/13/17 14:31 Last Admin: 04/22/17 15:45 Dose: 1,000 mcg Docusate Sodium (Colace) 100 mg PO DAILY PRN PRN Reason: Constipation Last Admin: 04/22/17 08:36 Dose: 100 mg Furosemide (Lasix) 20 mg PO 0800,1400 [facility] Last Admin: 04/27/17 10:06 Dose: 20 mg Haloperidol (Haldol) 0.5 mg PO Q6H PRN PRN Reason: Extreme agitation Haloperidol Lactate (Haldol) 0.5 mg IM Q6H PRN PRN Reason: Extreme agitation Latanoprost (Xalatan) 1 drops EACH EYE HS [facility] Last Admin: 04/26/17 20:01 Dose: 1 drops Levothyroxine Sodium (Synthroid) 75 mcg PO ACB [facility] Last Admin: 04/27/17 06:16 Dose: 75 mcg Lorazepam (Ativan) 0.5 mg PO Q6H PRN PRN Reason: Extreme agitation Lorazepam (Ativan Inj) 0.5 mg IM Q6H PRN PRN Reason: Extreme agitation Olanzapine (Zyprexa Zydis) 7.5 mg PO 17 [facility] Last Admin: 04/26/17 17:10 Dose: 7.5 mg Pantoprazole Sodium (Protonix Tab) 40 mg PO ACB [facility] Last Admin: 04/27/17 06:16 Dose: 40 mg Senna (Senna Lax) 17.2 mg PO [facility] Last Admin: 04/26/17 20:00 Dose: Not Given Timolol Maleate (Timoptic 0.5% Eye Drops) 1 drops EACH EYE DAILY [facility] Last Admin: 04/27/17 10:06 Dose: 1 drops Subjective: Patient seen and chart reviewed. Case discussed with treatment team. On interview, patient is pleasant and cooperative. She continues to have delusional beliefs about her things being stolen from the [facility] but she perseverates on it less than previously and she is willing to engage in discussions about how to prevent it (such as keep a lockbox with her special things). Patient denies any SI, HI or AVH. Patient denies any adverse side effects related to psychotropic medications. Nursing staff report patient has not had any significant behaviors on the unit. Patient has been getting Zyprexa in drink with consent of her guardian. Patient slept well overnight. VSS. Patient is eating well. Psychotropic PRNs required in the past 24 hours: none. Start Time: 11:00 Stop Time: 11:20 Care: >50% of this visit spent in counseling/coordination care. (with SW and discussing options at facility to facilitate return) Mental Status Exam Vitals: Last Vital Signs Temp 96.0 F L 04/27/17 08:00 Pulse 76 04/27/17 08:00 Resp 16 04/27/17 08:00 BP 146/78 H 04/27/17 08:00 Pulse Ox 97 04/27/17 08:00 Height: 1.63 m Weight: 96.7 kg - Mental Status Exam Muscle Strength/Tone: Normal Dressing: Casual Grooming: Fair Attitude: Cooperative Motor Activity: Normal Eye Contact: Good Speech: Normal Volume: Normal Rhythm: Appropriate Rhythm Orientation: Disoriented to time, Disoriented to situation, Oriented to person, Oriented to place Mood: Euthymic Rate of Thoughts: Pressured (milkd) Thought Organization: Perseverations (on delusions) Associations: Intact Abstract Reasoning: Poor abstract reasoning Thought Content: Delusions, Paranoia Perception/Psychotic: Perception Normal Language: Naming Intact Fund of Knowledge: Poor fund of knowledge Memory: Poor-recent Suicidal Ideation: Denies Homicidal Ideation: Denies Insight: Impaired Judgement: Impaired Impulse Control: Fair - Laboratory Result Diagrams: 04/22/17 09:58 04/22/17 09:58 Assessment and Plan (1) Acute psychosis Problem details: R/O Schizophrenia R/O Delusional disorder Current visit: Yes Status: Acute (2) Major neurocognitive disorder Current visit: Yes Status: Acute (3) COPD (chronic obstructive pulmonary disease) Current visit: Yes Status: Acute (4) Hypertension Current visit: Yes Status: Acute (5) Glaucoma Current visit: Yes Status: Acute (6) Hypothyroidism Current visit: Yes Status: Acute (7) Osteoarthritis Current visit: Yes Status: Acute (8) Vitamin B12 deficiency Current visit: Yes Status: Acute Continue current care (Zyprexa 7.5mg PO in drink at dinner). SW to discuss options with facility regarding symptoms, discharge plans, etc. Hospital Course Summary Disclaimer: The visit summary below is not to be considered part of the above Progress Note. Hospital Course: 04/15/17 Impression Hypokalemia- POA Psychosis Schizophrenia COPD Hypertension Glaucoma Hypothyroidism Osteoarthritis Plan Agree with admission to [facility] under the care of Dr. Katz for further psychiatric evaluation and treatment. All medical screening reviewed. Will recommend treating the mild hypokalemia with a one-time dose of potassium 40meq. It appears she is on Lasix BID without scheduled potassium supplementation. Will then schedule 10 meq daily. Monitor blood pressure, It does not appear the patient is on any antihypertensives currently. Encourage patient to participate in unit activities and provide a safe environment. Hospital services will continue to follow patient covering for PCP, Dr. Zarate 04/15/17 Psych: Admit - continued home medications. 04/16/17 Psych: Attempting to obtain records from [place] to assess whether patient has previously been diagnosed as bipolar - if so, would like to start Depakote once obtaining consent from [facility]. Have ordered Vitamin B12 1000mg IM x 3 days due to low B12 upon admission. 04/17/17 12:55 Some paranoia but no behaviors. Continue current care 04/18/17 12:42 Some paranoia. Continue current care 04/19/17 11:03 Some paranoia but mild. [facility] records have a past diagnosis of Unspecified Schizophrenia and a neurocognitive Disorder. (Possibly Delusional Disorder). PT reportedly did well on Haldol in the past but it was stopped. 04/20/17 Psych: Will start Zyprexa 2.5mg PO in drink at dinner; informed consent given by guardian to give medication without patient's knowledge. 04/21/17 Psych: Zyprexa started last night - if well-tolerated, can increase to 5mg PO daily on 04/22. Will also continue weekly IM Vitamin B12 x 1 month then monthly injections thereafter. Would prefer to use different antipsychotic as patient is already obese but limited as it must be dissolved in patient's drink. 04/22/17 Psych: Increase Zyprexa Zydis to 5mg PO daily at dinnertime (dissolved in drink without patient's knowledge); informed consent given by guardian. 04/23/17 Psych: Continue current care as Zyprexa was just increased. May need to increase further or consider different antipsychotic that could also be hidden in drink. 04/24/17 12:03 Increase Zyprexa to 7.5mg at HS to target paranoia Plan-04/25 (Mirakian) Overall, Tammie appears medically stable. Continue psychiatric care per team. Continue to provide safe and supportive environment. Continue preparation H topical cream for hemorrhoids with bowel motivation. Continue current cares. 04/25/17 11:23 Some paranoia remains. Continue current care as Zyprexa was just increased 04/26/17 10:31 Paranoia improving. Continue current care 04/27/16 Psych: Continue current care (Zyprexa 7.5mg PO in drink at dinner). SW to discuss options with facility regarding symptoms, discharge plans, etc.
--- NOTE | 2017-04-27 15:49 | Progress Note ---
- Date 04/27/17 Subjective: Patient is seen in the TV room watching TV. She reports she is doing very well. Is happy to be here. She is wear mittens and states this helps her "carpal tunnel" symptoms. Staff has no concerns about her at present. Objective Vital signs: Temperature 96.0 F L 04/27/17 08:00 Pulse Rate 76 04/27/17 08:00 Respiratory Rate 16 04/27/17 08:00 Blood Pressure 146/78 H 04/27/17 08:00 Pulse Oximetry 97 04/27/17 08:00 Height/Weight/BMI: Height 1.63 m Weight 96.7 kg Body Mass Index 36.4 - Constitutional Present: well nourished, well developed - Routine Respiratory Exam Present: CTA bilaterally. Absent: wheezes - Routine Cardiovascular Exam Present: RRR. Absent: murmur - Routine Abdominal Exam Present: soft, normoactive bowel sounds, non distended. Absent: tenderness - Routine Extremities Exam Present: no edema, normal capillary refill - Routine Skin Exam Present: dry, warm - Routine Neurological Exam Present: alert, normal speech - Routine Lymphatic Exam Lymphatic: Absent: adenopathy - Routine Psychiatric Exam Present: normal affect, cooperative Results - Labs CBC & Chem 7: 04/22/17 09:58 04/22/17 09:58 Assessment and Plan (1) Acute psychosis Problem details: R/O Schizophrenia R/O Delusional disorder Current visit: Yes Status: Acute Assessment and Plan: Impression Hypokalemia- resolved Psychosis Schizophrenia COPD B12 deficiency Hypertension Glaucoma Hypothyroidism Osteoarthritis Plan Overall, Tammie appears medically stable. Continue psychiatric care. B12 injections started by Dr. Katz for deficiency. Resuscitation Status: Full Code - Physician Narrative Physician: Rachel Paul MD Narrative: Date: 04/27/17 Time: 1800 Mrs. Saravia was resting comfortably in the day room when seen. She denied dyspnea or other concerns and chatted about possibility of going home soon although confided that it's not really her home. She reports that she's from [place] and only lives in [place] since moving to [place]f. NAD, alert, cooperative Gloves on Respirations nonlabored, good airflow, breath sounds clear B-[address] Katz for B-12 level of 210. Outpatient records reviewed-no prior report B-12 deficiency. Suspect can manage with oral replacement at discharge. Lipids noted. TSH nl. Hospital Course Summary Disclaimer: The visit summary below is not to be considered part of the above Progress Note. Hospital Course: 04/15/17 Impression Hypokalemia- POA Psychosis Schizophrenia COPD Hypertension Glaucoma Hypothyroidism Osteoarthritis Plan Agree with admission to [facility] under the care of Dr. Katz for further psychiatric evaluation and treatment. All medical screening reviewed. Will recommend treating the mild hypokalemia with a one-time dose of potassium 40meq. It appears she is on Lasix BID without scheduled potassium supplementation. Will then schedule 10 meq daily. Monitor blood pressure, It does not appear the patient is on any antihypertensives currently. Encourage patient to participate in unit activities and provide a safe environment. Hospital services will continue to follow patient covering for PCP, Dr. Zarate 04/15/17 Psych: Admit - continued home medications. 04/16/17 Psych: Attempting to obtain records from [place] to assess whether patient has previously been diagnosed as bipolar - if so, would like to start Depakote once obtaining consent from [facility]. Have ordered Vitamin B12 1000mg IM x 3 days due to low B12 upon admission. 04/17/17 12:55 Some paranoia but no behaviors. Continue current care 04/18/17 12:42 Some paranoia. Continue current care 04/19/17 11:03 Some paranoia but mild. [facility] records have a past diagnosis of Unspecified Schizophrenia and a neurocognitive Disorder. (Possibly Delusional Disorder). PT reportedly did well on Haldol in the past but it was stopped. 04/20/17 Psych: Will start Zyprexa 2.5mg PO in drink at dinner; informed consent given by guardian to give medication without patient's knowledge. 04/21/17 Psych: Zyprexa started last night - if well-tolerated, can increase to 5mg PO daily on 04/22. Will also continue weekly IM Vitamin B12 x 1 month then monthly injections thereafter. Would prefer to use different antipsychotic as patient is already obese but limited as it must be dissolved in patient's drink. 04/22/17 Psych: Increase Zyprexa Zydis to 5mg PO daily at dinnertime (dissolved in drink without patient's knowledge); informed consent given by guardian. 04/23/17 Psych: Continue current care as Zyprexa was just increased. May need to increase further or consider different antipsychotic that could also be hidden in drink. 04/24/17 12:03 Increase Zyprexa to 7.5mg at HS to target paranoia Plan-04/25 (Mirakian) Overall, Tammie appears medically stable. Continue psychiatric care per team. Continue to provide safe and supportive environment. Continue preparation H topical cream for hemorrhoids with bowel motivation. Continue current cares. 04/25/17 11:23 Some paranoia remains. Continue current care as Zyprexa was just increased 04/26/17 10:31 Paranoia improving. Continue current care 04/27/16 Psych: Continue current care (Zyprexa 7.5mg PO in drink at dinner). SW to discuss options with facility regarding symptoms, discharge plans, etc.
[2017-04-27] MEDS: OLANZapine ODT 5 MG TABLET PO SCH (17:54)
[2017-04-27] MEDS: LATANOPROST 0.005% EYE DROPS 2.5ml EACH EYE SCH (20:27)
[2017-04-27] MEDS: SENNOSIDES 8.6 MG TABLET PO SCH (20:28)
[2017-04-28] MEDS: LEVOTHYROXINE 75 MCG TABLET PO SCH (06:32)
[2017-04-28] MEDS: PANTOPRAZOLE 40 MG TABLET PO SCH (06:32)
[2017-04-28] MEDS: FUROSEMIDE 20 MG TABLET PO SCH ×2 (09:41→15:05)
[2017-04-28] MEDS: TIMOLOL 0.5% EYE DROPS 5 ML EACH EYE SCH (09:41)
--- NOTE | 2017-04-28 13:19 | Neuropsych Progress Note ---
[facility] Subjective Date: 04/28/17 - Sujective/Severity of Illness Medications: Acetaminophen (Tylenol) 1,000 mg PO Q6H PRN PRN Reason: Pain Last Admin: 04/26/17 22:16 Dose: 1,000 mg Al Hydroxide/Mg Hydroxide (Maalox Plus) 5 ml PO BID PRN PRN Reason: Indigestion Benzocaine (Preparation H) 1 applic TOP Q4H PRN PRN Reason: Hemorrhoids Cyanocobalamin (Vit. B-12) 1,000 mcg IM Q7D [facility] Stop: 05/13/17 14:31 Last Admin: 04/22/17 15:45 Dose: 1,000 mcg Docusate Sodium (Colace) 100 mg PO DAILY PRN PRN Reason: Constipation Last Admin: 04/22/17 08:36 Dose: 100 mg Furosemide (Lasix) 20 mg PO 0800,1400 [facility] Last Admin: 04/28/17 09:41 Dose: 20 mg Haloperidol (Haldol) 0.5 mg PO Q6H PRN PRN Reason: Extreme agitation Haloperidol Lactate (Haldol) 0.5 mg IM Q6H PRN PRN Reason: Extreme agitation Latanoprost (Xalatan) 1 drops EACH EYE [facility] Last Admin: 04/27/17 20:27 Dose: 1 drops Levothyroxine Sodium (Synthroid) 75 mcg PO ACB [facility] Last Admin: 04/28/17 06:32 Dose: 75 mcg Lorazepam (Ativan) 0.5 mg PO Q6H PRN PRN Reason: Extreme agitation Lorazepam (Ativan Inj) 0.5 mg IM Q6H PRN PRN Reason: Extreme agitation Olanzapine (Zyprexa Zydis) 7.5 mg PO 17 [facility] Last Admin: 04/27/17 17:54 Dose: 7.5 mg Pantoprazole Sodium (Protonix Tab) 40 mg PO ACB [facility] Last Admin: 04/28/17 06:32 Dose: 40 mg Senna (Senna Lax) 17.2 mg PO HS [facility] Last Admin: 04/27/17 20:28 Dose: 17.2 mg Timolol Maleate (Timoptic 0.5% Eye Drops) 1 drops EACH EYE DAILY [facility] Last Admin: 04/28/17 09:41 Dose: 1 drops Subjective: Patient seen and chart reviewed. Case discussed with treatment team. On interview, patient is pleasant and cooperative. She continues to have delusional beliefs about her things being stolen from the NH but she perseverates on it less than previously and she is willing to engage in discussions about how to prevent it (such as keep a lockbox with her special things). Patient denies any SI, HI or AVH. Patient denies any adverse side effects related to psychotropic medications. Nursing staff report patient has not had any significant behaviors on the unit. Patient has been getting Zyprexa in drink with consent of her guardian. Patient slept well overnight. VSS. Patient is eating well. Psychotropic PRNs required in the past 24 hours: none. [facility] is coming today to assess patient. Start Time: 11:20 Stop Time: 11:40 Mental Status Exam Vitals: Last Vital Signs Temp 97.4 F 04/28/17 09:42 Pulse 85 04/28/17 09:42 Resp 16 04/28/17 09:42 BP 110/66 04/28/17 09:42 Pulse Ox 99 04/28/17 09:42 Height: 1.63 m Weight: 96.8 kg - Mental Status Exam Muscle Strength/Tone: Normal Dressing: Casual Grooming: Fair Attitude: Cooperative Motor Activity: Normal Eye Contact: Good Speech: Normal Volume: Normal Rhythm: Appropriate Rhythm Orientation: Disoriented to time, Disoriented to situation, Oriented to person, Oriented to place Mood: Euthymic Rate of Thoughts: Pressured (milkd) Thought Organization: Perseverations (on delusions) Associations: Intact Abstract Reasoning: Poor abstract reasoning Thought Content: Delusions, Paranoia Perception/Psychotic: Perception Normal Language: Naming Intact Fund of Knowledge: Poor fund of knowledge Memory: Poor-recent Suicidal Ideation: Denies Homicidal Ideation: Denies Insight: Impaired Judgement: Impaired Impulse Control: Fair - Laboratory Result Diagrams: 04/22/17 09:58 04/22/17 09:58 Assessment and Plan (1) Acute psychosis Problem details: R/O Schizophrenia R/O Delusional disorder Current visit: Yes Status: Acute (2) Major neurocognitive disorder Current visit: Yes Status: Acute (3) COPD (chronic obstructive pulmonary disease) Current visit: Yes Status: Acute (4) Hypertension Current visit: Yes Status: Acute (5) Glaucoma Current visit: Yes Status: Acute (6) Hypothyroidism Current visit: Yes Status: Acute (7) Osteoarthritis Current visit: Yes Status: Acute (8) Vitamin B12 deficiency Current visit: Yes Status: Acute Continue current care for the time being; [facility] to assess patient today. Hospital Course Summary Disclaimer: The visit summary below is not to be considered part of the above Progress Note. Hospital Course: 04/15/17 Impression Hypokalemia- POA Psychosis Schizophrenia COPD Hypertension Glaucoma Hypothyroidism Osteoarthritis Plan Agree with admission to [facility] under the care of Dr. Katz for further psychiatric evaluation and treatment. All medical screening reviewed. Will recommend treating the mild hypokalemia with a one-time dose of potassium 40meq. It appears she is on Lasix BID without scheduled potassium supplementation. Will then schedule 10 meq daily. Monitor blood pressure, It does not appear the patient is on any antihypertensives currently. Encourage patient to participate in unit activities and provide a safe environment. Hospital services will continue to follow patient covering for PCP, Dr. Zarate 04/15/17 Psych: Admit - continued home medications. 04/16/17 Psych: Attempting to obtain records from [place] to assess whether patient has previously been diagnosed as bipolar - if so, would like to start Depakote once obtaining consent from [facility]. Have ordered Vitamin B12 1000mg IM x 3 days due to low B12 upon admission. 04/17/17 12:55 Some paranoia but no behaviors. Continue current care 04/18/17 12:42 Some paranoia. Continue current care 04/19/17 11:03 Some paranoia but mild. [facility] records have a past diagnosis of Unspecified Schizophrenia and a neurocognitive Disorder. (Possibly Delusional Disorder). PT reportedly did well on Haldol in the past but it was stopped. 04/20/17 Psych: Will start Zyprexa 2.5mg PO in drink at dinner; informed consent given by guardian to give medication without patient's knowledge. 04/21/17 Psych: Zyprexa started last night - if well-tolerated, can increase to 5mg PO daily on 04/22. Will also continue weekly IM Vitamin B12 x 1 month then monthly injections thereafter. Would prefer to use different antipsychotic as patient is already obese but limited as it must be dissolved in patient's drink. 04/22/17 Psych: Increase Zyprexa Zydis to 5mg PO daily at dinnertime (dissolved in drink without patient's knowledge); informed consent given by guardian. 04/23/17 Psych: Continue current care as Zyprexa was just increased. May need to increase further or consider different antipsychotic that could also be hidden in drink. 04/24/17 12:03 Increase Zyprexa to 7.5mg at HS to target paranoia Plan-04/25 (Mirakian) Overall, Tammie appears medically stable. Continue psychiatric care per team. Continue to provide safe and supportive environment. Continue preparation H topical cream for hemorrhoids with bowel motivation. Continue current cares. 04/25/17 11:23 Some paranoia remains. Continue current care as Zyprexa was just increased 04/26/17 10:31 Paranoia improving. Continue current care 04/27/17 Psych: Continue current care (Zyprexa 7.5mg PO in drink at dinner). SW to discuss options with facility regarding symptoms, discharge plans, etc. 04/28/17 Psych: Continue current care for the time being; [facility] to assess patient today.
--- NOTE | 2017-04-28 13:55 | Extended Care Facility Orders ---
Admission Orders Admit to:: [facility] Allergies/Adverse Reactions: Allergies heparin Allergy (Unknown, Verified 04/14/17 15:56) influenza virus vaccine, specific Allergy (Unknown, Verified 04/14/17 15:56) iodine Allergy (Unknown, Verified 04/14/17 15:56) Penicillins Allergy (Unknown, Verified 04/14/17 15:56) pentazocine [From Talwin] Allergy (Unknown, Verified 04/14/17 15:56) strawberry Allergy (Unknown, Verified 04/14/17 15:56) Sulfa (Sulfonamide Antibiotics) Allergy (Unknown, Verified 04/14/17 15:56) zolpidem [From Ambien] Allergy (Unknown, Verified 04/14/17 15:56) orange peel tincture Allergy (Unknown, Uncoded 01/20/17 09:24) Shellfish Allergy (Unknown, Uncoded 11/01/10 08:02) Admitting Diagnosis: psychosis nos Admitting Physician: Guerline Katz MD Attending Physician: Guerline Katz MD Code Status: Full Code Anticiapted Length of Stay: greater than 30 days Rehab Potential: good Rehab Prognosis: good Diet: Regular Wound/Incision Care: N/A May use Facility Protocol or Standing Orders: Yes May have flu vaccine: Yes Evaluations/Treatment: Psychiatric Care Home Certification: I certify that SNF services are required to be given on an Inpatient basis because of the patients need for correction care on a continuing basis for the condition(s) for which he/she received inpatient hospital services prior to his/her transfer to the SNF. SNF inpatient care is necessary for the following reasons Indication for Care Home: Not Applicable - Additional Information In Event of Arrest: Start CPR,call 911,send patient to the ER Resident is Aware of Diagnosis: No (Patient is not aware of diagnosis or treatment; guardian has given informed) Referrals: Mt Zarate MD [Family Provider] - Additional Orders: Patient is to be given Zyprexa Zydis 7.5mg PO with dinner ( dissolved in drink without patient's knowledge); guardian has given informed consent to this.
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
[2017-04-28] MEDS: OLANZapine ODT 5 MG TABLET PO SCH (16:53)
[2017-04-28] MEDS: SENNOSIDES 8.6 MG TABLET PO SCH (20:04)
[2017-04-28] MEDS: LATANOPROST 0.005% EYE DROPS 2.5ml EACH EYE SCH (20:04)
[2017-04-28] MEDS: ACETAMINOPHEN 500 MG TABLET PO PRN (20:05)
[2017-04-28 20:21] VITALS: BP 116/67; TEMP 97.2
[2017-04-29] MEDS: FUROSEMIDE 20 MG TABLET PO SCH (08:43)
[2017-04-29] MEDS: TIMOLOL 0.5% EYE DROPS 5 ML EACH EYE SCH (08:43)
[2017-04-29] MEDS: PANTOPRAZOLE 40 MG TABLET PO SCH (08:43)
[2017-04-29] MEDS: LEVOTHYROXINE 75 MCG TABLET PO SCH (08:43)
[2017-04-29 09:33] VITALS: PULSE 78; RESP 16; O2SAT 97
== END 2017-04-29 09:48 | DRG 885 ==
LOC: ED 15:37 → GEN 17:30
PROVIDERS: ADMIT Psychiatry & Neurology Psychiatry; ATTEND Psychiatry & Neurology Psychiatry